=== PATIENT | female | born 1985 | race Hispanic/Latino ===

== ENCOUNTER 2016-11-13 12:40 | Outpatient (CLI) | payer BC ==
--- NOTE | 2016-11-13 15:34 | Ultrasound Report ---
ULTRASOUND PELVIC COMPLETE ULTRASOUND TRANSVAGINAL HISTORY: Pelvic pain. TECHNIQUE: Transabdominal and transvaginal ultrasound with color and spectral doppler interrogation. The uterus is enlarged measuring 14 x 8 x 12 cm. A large fibroid in the posterior wall measures up to 10 cm. The endometrial stripe is displaced anteriorly and measures 2.3 cm on transvaginal imaging. There is suggestion of a small cyst or gestational sac within the endometrium with average diameter measuring 12 mm. No definite pole or heart tones are demonstrated. If this is a gestational sac, it correlates with a 6 week, 0 day . The right ovary measures 3.9 x 2.1 x 2.8 cm. The right ovary contains a 2 cm complex area which may represent a corpus luteum cyst. The left ovary is unremarkable measuring 3.7 x 1.4 x 3.6 cm. Impression: Uterine fibroid disease. There is suggestion of a cyst or intrauterine gestational sac as outlined above. Is there clinical concern for ? Correlation with test or beta hCG levels is recommended.
== END 2016-11-13 12:41 | disposition home or self-care (01) ==
LOC: US 12:40
PROVIDERS: ATTEND Obstetrics & Gynecology
DX: D25.9 Leiomyoma of uterus, unspecified (principal); N85.2 Hypertrophy of uterus
CPT/HCPCS: 76830; 76856

== ENCOUNTER 2016-11-16 09:33 | Outpatient (CLI) | payer BC | END 2016-11-16 09:34 | disposition home or self-care (01) | LOC: LAB 09:33 | PROVIDERS: ATTEND Obstetrics & Gynecology | DX: Z03.79 Encounter for other suspected maternal and fetal conditions ruled out (principal) | CPT/HCPCS: 36415; 84702 ==

== ENCOUNTER 2016-11-18 10:01 | Day surgery (SDC) | payer BC ==
--- NOTE | 2016-11-18 10:27 | Anesthesia Consultation ---
Anesthesia Consult and Med Hx Date of service: 11/18/16 - Airway Anesthetic Teeth Evaluation: Good ROM Head & Neck: Adequate Mental/Hyoid Distance: Adequate Mallampati Class: Class II Intubation Access Assessment: Probably Good - Pulmonary Exam CTA: Yes - Cardiac Exam Cardiac Exam: RRR - Pre-Operative Health Status ASA Pre-Surgery Classification: ASA1 Proposed Anesthetic Plan: General (Uterine Fibroud) - Additional Comments Anesthesia Medical History Comments: Uterine Fibroid
--- NOTE | 2016-11-18 10:27 | Anesthesia Day of Surgery ---
Anesthesia Day of Surgery - Day of Surgery Patient Examined: Yes Patient H&P Reviewed: Yes Patient is NPO: Yes
--- NOTE | 2016-11-18 10:50 | Short Stay Summary ---
Short Stay Documentation Date of service: 11/18/16 Narrative H&P: Pt is a 31yo WF LMP 10/05/16 presents for surgical evaluation and treatment of a blighted ovum. Bhcg was 17,577 and pelvic u/s showed an enlarged uterus with a 10cm posterior fibroid and an empty gestational sac. She has severe pelvic pain but no bleeding. She is now scheduled for a D&C due to Blighted ovum. - History Principal diagnosis: Blighted ovum H&P: obtained from office Past Medical History: other (fibroids) Past Surgical History: No surgical history Social history: no significant social history, single - Allergies and Medications Current Medications: Allergies No Known Allergies Allergy (Verified 05/07/15 09:18) Home Medications Medication Instructions Recorded Confirmed Last Taken Type Acetaminophen/Codeine [Tylenol #3] 1 tab PO Q6H PRN #16 tab 05/07/15 Unknown Rx Cyclobenzaprine [Flexeril] 10 mg PO TID PRN #15 tablet 05/07/15 Unknown Rx Active Medications Cefazolin Sodium (Ancef/Sterile Water 2 Gm/20 Ml) 2 gm in 20 mls @ 80 mls/hr IV PREOP NR PRN Reason: Protocol Lactated Ringer's (Lactated Ringers) 1,000 mls @ 125 mls/hr IV DIRECT CHASE - Physical exam General appearance: mild distress Integumentary: no rash HEENT: Atraumatic Lungs: Clear to auscultation Breasts: deferred Heart: Regular rate Gastrointestinal: normal Female Genitourinary: masses Rectal Exam: deferred Extremities: No edema Neurological: Normal gait, Normal speech - Brief post op/procedure progress note Date of procedure: 11/18/16 Pre-op diagnosis: Blighted ovum Post-op diagnosis: same Procedure: D&C Anesthesia: MAC Findings: A 10-12 weeks size uterus with a large posterior masses. Moderate amount of POC obtained. Surgeon: SINGH IRELAND Estimated blood loss: 50-100ml Pathology: list (POC) Specimen disposition: to lab Condition: stable - Hospital course Hospital course: Unremarkable. - Disposition Condition at discharge: Good Disposition: DC-01 TO HOME OR SELFCARE - Discharge Diagnoses (1) Blighted ovum Status: Resolved (2) Fibroid uterus Status: Chronic Qualifiers: Uterine leiomyoma location: submucous Qualified Code(s): D25.0 - Submucous leiomyoma of uterus Short Stay Discharge Plan Activity: no restrictions Diet: regular Follow up with: PRIMARY CARE, [Primary Care Provider] - 7 Days SINGH IRELAND MD [Staff Physician] - 14 Days Prescriptions: Doxycycline [Vibramycin CAP] 100 mg PO Q12HR #14 capsule HYDROcodone/APAP 5-325 [Mon[place] 5/325] 1 each PO Q6HR PRN #20 tablet PRN Reason: Pain Ibuprofen [Motrin] 800 mg PO Q8HR PRN #30 tablet PRN Reason: Moder Pain Unrelieved By [place] Methylergonovine [Methergine] 0.2 mg PO Q8HR #6 tablet
[2016-11-18] MEDS ORDERED: ANCEF/STERILE WATER 2 GM/20 ML 2 GM/20 ML SYRINGE IV NR (11:00)
[2016-11-18] MEDS ORDERED: LACTATED RINGERS 1,000 ML IV SCH (11:00)
[2016-11-18] MEDS ORDERED: XYLOCAINE MPF 2% ONE (11:04)
[2016-11-18] MEDS ORDERED: SUBLIMAZE ONE (11:04)
[2016-11-18] MEDS ORDERED: DIPRIVAN 10 MG/ML IV ONE (11:04)
[2016-11-18] MEDS ORDERED: ZOFRAN ONE (11:06)
[2016-11-18] MEDS ORDERED: DECADRON ONE (11:06)
[2016-11-18] MEDS ORDERED: DILAUDID IV ONE (11:08)
[2016-11-18 11:17] LABS: Hematocrit 32.8 % (30.3-42.9); Hemoglobin 11.2 gm/dl (10.1-14.3); Mean Corpuscular HGB Conc 34 % (30-34); Mean Corpuscular Hemoglobin 30 pg (28-32); Mean Corpuscular Volume 89 fl (79-97); Platelet Count 368 K/mm3 (140-440); Red Cell Distribution Width 12.7 % (13.2-15.2); White Blood Count 13.5 K/mm3 (4.5-11.0)
[2016-11-18] MEDS ORDERED: VERSED IV NR (12:00)
[2016-11-18] MEDS ORDERED: ZOFRAN IV NR (12:00)
[2016-11-18] MEDS ORDERED: PEPCID IV NR (12:00)
[2016-11-18] MEDS ORDERED: NACL 0.9% IR ONE (12:10)
--- NOTE | 2016-11-18 12:30 | Operative Report ---
Operative Report Operative Report: PREOPERATIVE DIAGNOSIS: 1. Blighted ovum 2. Fibroid uterus POSTOPERATIVE DIAGNOSIS: Same OPERATIVE PROCEDURE: Dilatation and curettage. SURGEON: Pk Diaz MD ANESTHESIA: General Mac ANESTHESIOLOGIST: Dr. Fitzgerald ESTIMATED BLOOD LOSS: 50 mL's FINDINGS: A 10-12 week size uterus with moderate amounts products of conception. A large posterior fibroid. COMPLICATIONS: None COUNTS: Correct x3. PROCEDURE: After the patient was correctly identified, and after general anesthesia was administered, the patient was prepped and draped in the usual sterile fashion and placed in dorsal lithotomy position. First, the bladder was emptied using a straight catheter. Next, a speculum was placed in the vaginal vault and the anterior lip of the cervix was grasped using a single- tooth tenaculum. The uterus was sounded to 12 cm. The cervical os was sequentially dilated, and an 10 mm vaccurette was used to suction blood and products of conception from the uterine cavity. After all the products of conception were removed, the procedure was considered complete. All instruments were removed from the vagina. The patient tolerated the procedure well and was transferred to the recovery room in stable condition.
[2016-11-18] MEDS: DILAUDID IV PRN ×2 (12:50→13:00)
--- NOTE | 2016-11-18 12:57 | Post Anesthesia Evaluation ---
- Post Anesthesia Evaluation Patient Participated: Yes Airway Patent: Yes Stable Respiratory Function: Yes Nausea/Vomiting: No Temp > 96.8F: Yes Pain Manageable: Yes Adequeate Hydration: Yes Anesthesia Complications: No Block Receding Appropriately: Not Applicable Patient on Ventilator: No
[2016-11-18] MEDS ORDERED: TORADOL ONE (13:05)
[2016-11-18] MEDS ORDERED: TORADOL IV ONE (13:09)
[2016-11-18 14:05] VITALS: BP 98/56
== END 2016-11-18 14:10 | disposition home or self-care (01) ==
LOC: OR 10:01
PROVIDERS: ATTEND Obstetrics & Gynecology
DX: O02.0 Blighted ovum and nonhydatidiform mole (principal); D25.0 Submucous leiomyoma of uterus
CPT/HCPCS: 36415; 59812; 85027; 86900; 86901; 88305; J0690; J1100; J1170; J1885; J2250; J2405; J2704; J3010; J7120

== ENCOUNTER 2016-12-04 12:21 | Outpatient (CLI) | payer BC | END 2016-12-04 12:22 | disposition home or self-care (01) | LOC: LAB 12:21 | PROVIDERS: ATTEND Obstetrics & Gynecology | DX: Z32.01 Encounter for pregnancy test, result positive (principal) | CPT/HCPCS: 36415; 84702 ==

== ENCOUNTER 2016-12-07 11:49 | Outpatient (CLI) | payer BC | END 2016-12-07 11:50 | disposition home or self-care (01) | LOC: LAB 11:49 | PROVIDERS: ATTEND Obstetrics & Gynecology | DX: O02.0 Blighted ovum and nonhydatidiform mole (principal); Z3A.15 15 weeks gestation of pregnancy | CPT/HCPCS: 36415; 84702 ==

== ENCOUNTER 2017-01-20 13:02 | Outpatient (CLI) | payer BC | END 2017-01-20 13:03 | disposition home or self-care (01) | LOC: LAB 13:02 | PROVIDERS: ATTEND Obstetrics & Gynecology | DX: Z32.02 Encounter for pregnancy test, result negative (principal) | CPT/HCPCS: 36415; 84702 ==

== ENCOUNTER 2017-07-21 16:03 | Outpatient (CLI) | payer BC ==
--- NOTE | 2017-07-22 08:02 | Magnetic Resonance Report ---
MR PELVIS WITH AND WITHOUT CONTRAST HISTORY: Leiomyoma of uterus TECHNIQUE: Multiple T1 and T2-weighted images with and without fat suppression. Post contrast T1 fat-sat imaging following 15 mL of Multihance intravenously. COMPARISON: Pelvic ultrasound dated 11/13/16. FINDINGS: The uterus is anteverted. The uterus measures 9.5 x 6.7 x 9.1 cm. There is a large submucosal fibroid in the left posterolateral uterine wall measuring up to 6.2 x 6.9 x 5.8 cm. There is no significant enhancement of this fibroid following IV gadolinium. No calcifications. No additional fibroids are detected. The endometrial stripe is displaced and measures up to 1.2 cm in thickness. The cervix is unremarkable. The ovaries are within normal limits and contain normal appearing follicles. The bladder and visualized bowel loops within the pelvis are unremarkable. There is trace pelvic fluid in the cul-de-sac which appears physiologic. No evidence adenopathy or inflammatory changes. The bony pelvis is normal. IMPRESSION: Large submucosal fibroid as outlined above without significant enhancement following IV gadolinium.
== END 2017-07-21 16:04 | disposition home or self-care (01) ==
LOC: MRI 16:03
PROVIDERS: ATTEND Radiology Diagnostic Radiology
DX: D25.0 Submucous leiomyoma of uterus (principal)
CPT/HCPCS: 72197; A9577

== ENCOUNTER 2017-12-29 14:51 | Outpatient (CLI) | payer BC ==
--- NOTE | 2017-12-29 18:11 | Ultrasound Report ---
FINAL REPORT EXAM: US PELVIC COMPLETE HISTORY: HX FIBROID; F/U . LMP 12/21/2017 TECHNIQUE: Ultrasound of the pelvis using transvaginal imaging PRIORS: Doubt ultrasound pelvis 11/13/2016, MRI pelvis 07/21/2017 FINDINGS: Uterus: Uterus is normal in size and heterogeneous in echogenicity. The uterus measures 9.1 x 5.2 x 8.8 cm in size. Within the left side of the uterus, there is a 5.9 x 4.3 x 5.7 cm hypoechoic fibroid again noted, similar to the previous exam. This displaces the endometrial stripe to the right of midline. Endometrial stripe: Normal and uniform in thickness measuring 10.1 mm. Ovaries: Both ovaries appear normal in size and echogenicity with normal blood flow bilaterally. The right ovary measures 3.8 x 2.3 x 2.8 cm and the left ovary measures 2.9 x 2.1 x 3.4 cm in size. Other: There is no evidence for solid adnexal mass or free fluid in the cul-de-sac seen. There is a small amount of fluid in the right adnexa. IMPRESSION: Stable pelvic ultrasound. Large fibroid in the left side of the uterus again noted.
--- NOTE | 2017-12-30 00:49 | Ultrasound Report ---
FINAL REPORT EXAM: US TRANSVAGINAL HISTORY: f/u hx; fibroids COMPARISON: Pelvic ultrasound from October 2016. MRI the pelvis from July 2017. TECHNIQUE: Several real-time grayscale and color Doppler images were obtained. Transvaginal exam. FINDINGS: The uterus measures 9.1 x 5.2 x 8.8 centimeters. Endometrial stripe measures 10 millimeters. This is within normal limits. There redemonstration of a prominent fibroid along the left uterine body measuring 5.9 x 4.3 x 5.7 centimeters. On prior study, this measured 6.2 x 6.9 x 5.8 centimeters. This has a prominent subserosal component. Right ovary measures 3.8 x 2.3 x 2.8 centimeters. Left ovary measures 2.9 x 2.1 x 3.4 centimeters. Within the right ovary there is a dominant follicle measuring 1.7 centimeters. Gross vascular flow to the ovaries. No adnexal masses are demonstrated. Trace free fluid in the pelvis within physiologic limits. IMPRESSION: Re-demonstration of prominent fibroid along the lateral margin the uterus measuring up to 5.9 centimeters in greatest dimension on today's exam, previously 6.9 centimeters on prior MRI. No other uterine lesions. Dominant follicle right ovary measuring 1.7 centimeters. Ovaries are otherwise unremarkable. No adnexal masses.
== END 2017-12-29 14:52 | disposition home or self-care (01) ==
LOC: US 14:51
PROVIDERS: ATTEND Obstetrics & Gynecology
DX: D25.1 Intramural leiomyoma of uterus (principal)
CPT/HCPCS: 76830; 76856

== ENCOUNTER 2018-05-02 08:35 | Outpatient (CLI) | payer BC ==
--- NOTE | 2018-05-02 11:23 | Ultrasound Report ---
ULTRASOUND PELVIC COMPLETE ULTRASOUND TRANSVAGINAL HISTORY: Pelvic and perineal pain. COMPARISON: 12/29/17. TECHNIQUE: Transabdominal and transvaginal ultrasound with color doppler interrogation. FINDINGS: Uterus: The uterus is anteverted. The uterus measures 9.2 x 4.4 x 5.8 cm. The large fibroid within the left lateral uterine wall has been removed since the previous exam. A cystic area filled with simple appearing fluid is now present in this area measuring 2.6 x 1.7 x 1.7 cm. No additional uterine fibroids are identified on ultrasound. Endometrium: 11.4 mm. No focal abnormality. Right ovary: 4.0 x 2.4 x 3.0 cm. A 1.7 cm slightly irregular cyst is noted within the right ovary. No suspicious mass. Left ovary: 3.5 x 2.2 x 3.8 cm. No focal abnormality. No pelvic fluid or mass is identified. Normal color doppler interrogation. IMPRESSION: The previously described fibroid in the left lateral uterine wall has been resected since 12/29/17. See above. 1.7 cm right ovarian cyst. No acute process is appreciated.
== END 2018-05-02 08:36 | disposition home or self-care (01) ==
LOC: US 08:35
PROVIDERS: ATTEND Obstetrics & Gynecology
DX: D25.1 Intramural leiomyoma of uterus (principal); N83.201 Unspecified ovarian cyst, right side
CPT/HCPCS: 76830; 76856

== ENCOUNTER 2019-03-02 08:35 | Outpatient (CLI) | payer BC ==
[2019-03-02 08:54] LABS: Hematocrit 39.2 % (30.3-42.9); Hemoglobin 13.1 gm/dl (10.1-14.3); Mean Corpuscular HGB Conc 33 % (30-34); Mean Corpuscular Volume 89 fl (79-97); Platelet Count 266 K/mm3 (140-440); Red Blood Count 4.39 M/mm3 (3.65-5.03); Red Cell Distribution Width 13.4 % (13.2-15.2)
[2019-03-02 09:29] LABS: Alanine Aminotransferase 5 units/L (7-56); Albumin 4.6 g/dL (3.9-5); BUN/Creatinine Ratio 18; Blood Urea Nitrogen 11 mg/dL (7-17); Calcium 9.3 mg/dL (8.4-10.2); Chol/HDL Ratio 2.77 %; HDL Cholesterol 48 mg/dL (40-59); Hemolysis Index 3; LDL Cholesterol,Direct 86 mg/dL (50-130)
[2019-03-06 14:43] LABS: Vitamin D, 25-OH, D2 <4 ng/mL
== END 2019-03-02 08:36 | disposition home or self-care (01) ==
LOC: LAB 08:35
PROVIDERS: ATTEND Family Medicine
DX: Z00.00 Encounter for general adult medical examination without abnormal findings (principal)
CPT/HCPCS: 36415; 80053; 80061; 82306; 82607; 82747; 83036; 84443; 85027

== ENCOUNTER 2020-03-08 11:53 | Outpatient (CLI) | payer BC ==
--- NOTE | 2020-03-08 18:37 | Ultrasound Report ---
Ultrasound transvaginal and transabdominal pelvic ultrasound INDICATION: Menorrhagia. Pelvic pain. History of fibroids. FINDINGS: The uterus measures 9.3 x 4.4 x 6.7 cm. A small myometrial calcification measuring 5 mm is present within the uterus. Endotracheal thickness is normal at 7 mm. A small amount of free fluid is seen adjacent to the right adnexa. The right ovary appears normal. The left ovary appears unremarkabl e aside from multiple small follicles. In the region of the left adnexa but not definitely within the left adnexa is a soft tissue like echogenicity that measures 3.4 x 1.5 cm. This demonstrates some in ternal flow. IMPRESSION: Nonspecific 3.4 x 1.5 cm lesion adjacent to the left adnexa, as above. As discussed above it is unclear if this is arising from the left adnexa or possibly the uterus. Alternatively this les ion is in the vicinity of the left external iliac vasculature and could potentially represent a patho logic lymph node. Recommend CT of the pelvis with IV contrast for further evaluation. Signer Name: Adarsh Austin MD Signed: 03/08/2020 6:32 PM Workstation Name: [id number]
== END 2020-03-08 11:54 | disposition home or self-care (01) ==
LOC: US 11:53
PROVIDERS: ATTEND Internal Medicine
DX: N85.9 Noninflammatory disorder of uterus, unspecified (principal); N85.8 Other specified noninflammatory disorders of uterus; R10.9 Unspecified abdominal pain
CPT/HCPCS: 76830; 76856

== ENCOUNTER 2020-03-19 10:03 | Outpatient (CLI) | payer BC ==
[2020-03-19 10:50] LABS: Blood Urea Nitrogen 9 mg/dL (7-17)
--- NOTE | 2020-03-19 12:09 | Cat Scan Report ---
CT pelvis w con INDICATION: Pelvic mass COMPARISON: Ultrasound 03/08/2020 TECHNIQUE: Pelvic CT exam performed. All CT scans at this location are performed using CT dose reduct ion for ALARA by means of automated exposure control. FINDINGS: CT PELVIS: Genitourinary: Periuterine varices are present. There is a peripherally enhancing cyst in the left ov karthik measuring 2 cm likely a corpus luteal cyst. Small quantity of fluid is seen within the rectouteri ne out. Lymphatics: There is a 2.7 cm soft tissue mass seen along the left aspect of the uterus. This is thou ght to represent a large lymph node. Mild lymphadenopathy is seen in the retroperitoneum in the peria ortic and aortocaval space for example on image 1 and 2 of series 2 measuring approximately 1.1 cm. T here are shotty lymph nodes seen along the pelvic sidewalls. Vasculature: No significant abnormality. Visualized Bowel: No significant abnormality. Osseous Structures: No aggressive osseous lesion. Additional Findings: None IMPRESSION: 1. There is a 2.7 cm soft tissue mass seen medially to the left external iliac artery and vein. This is most consistent with an enlarged lymph node. There is also mild retroperitoneal lymphadenopathy wh ich is incompletely visualized. Findings are concerning for neoplasm such as lymphoma. Recommend obta ining a CT of the chest and abdomen. Then recommend biopsy of the most accessible lesion. Signer Name: Silas Novak MD Signed: 03/19/2020 12:04 PM Workstation Name: [id number]
== END 2020-03-19 10:04 | disposition home or self-care (01) ==
LOC: CT 10:03
PROVIDERS: ATTEND Internal Medicine
DX: R59.0 Localized enlarged lymph nodes (principal); N83.202 Unspecified ovarian cyst, left side; R19.09 Other intra-abdominal and pelvic swelling, mass and lump
CPT/HCPCS: 36415; 72193; 82565; 84520; Q9967

== ENCOUNTER 2020-03-20 14:35 | Outpatient (CLI) | payer BC ==
--- NOTE | 2020-03-20 16:57 | Cat Scan Report ---
CT chest w con, CT abdomen w con INDICATION / CLINICAL INFORMATION: GENERALIZED INTRA-ABDOMINAL AND PELVIC SWEELING,MASS/LUMP. TECHNIQUE: Axial CT images were obtained through the chest, abdomen. All CT scans at this location are performed using CT dose reduction for ALARA by means of automated exposure control. COMPARISON: CT pelvis from 03/19/2020. FINDINGS: CHEST: Lungs: Lungs are clear No pleural effusion. No pneumothorax. Heart: No significant abnormality. Mediastinum: No significant abnormality. ADDITIONAL FINDINGS: None. ABDOMEN: Liver: No significant abnormality. Biliary: No significant abnormality. Spleen: No significant abnormality. Pancreas: No significant abnormality. Adrenals: No significant abnormality. Kidneys: No significant abnormality. Lymphatics: Mild retroperitoneal periaortic lymphadenopathy for example on images 70 and 80 in which the lymph nodes measure up to approximately 1.2 cm but demonstrate abnormal round morphology Vasculature: No significant abnormality. Bowel/Peritoneum: No significant abnormality. Osseous Structures: No aggressive osseous lesion. Additional Findings: None PELVIS 2.7 cm soft tissue mass seen along the left aspect of the uterus with central hypoattenuation. This i s thought to represent a large lymph node with central necrosis. On the prior examination there is no central hypoattenuation which could be related to the phase of contrast. Unchanged peripherally enha ncing left ovarian lesion which is most consistent with a corpus luteal cyst. IMPRESSION: 1. 2.7 cm soft tissue mass seen along the left external iliac chain is thought to represent an abnorm al lymph node. On today's examination there is central hyperattenuation concerning for central necros is. There is also mild retroperitoneal periaortic lymphadenopathy. No primary neoplasm is visualized however these findings are concerning for neoplastic etiology. 2. Signer Name: Silas Novak MD Signed: 03/20/2020 4:52 PM Workstation Name: [id number]
== END 2020-03-20 14:36 | disposition home or self-care (01) ==
LOC: CT 14:35
PROVIDERS: ATTEND Internal Medicine
DX: R59.0 Localized enlarged lymph nodes (principal)
CPT/HCPCS: 71260; 74160; Q9967

== ENCOUNTER 2020-04-03 08:09 | Day surgery (SDC) | payer BC ==
[2020-04-03] MEDS ORDERED: ONDANSETRON 4 MG/2 ML INJ IV ONE (08:39)
[2020-04-03] MEDS ORDERED: HYDROmorphone 2 MG/1 ML INJ IV ONE (08:39)
[2020-04-03] MEDS ORDERED: HYDROmorphone 1 MG/1 ML INJ IV ONE (09:24)
[2020-04-03 09:41] LABS: Basophils % (Auto) 0.9 % (0.0-1.8); Eosinophils # (Auto) 0.2 K/mm3 (0.0-0.4); Eosinophils % (Auto) 3.5 % (0.0-4.3); Hematocrit 38.1 % (30.3-42.9); Hemoglobin 13.2 gm/dl (10.1-14.3); Lymphocytes # (Auto) 1.8 K/mm3 (1.2-5.4); Lymphocytes % (Auto) 40.5 % (13.4-35.0); Mean Corpuscular HGB Conc 35 % (30-34); Mean Corpuscular Volume 90 fl (79-97); Monocytes # (Auto) 0.3 K/mm3 (0.0-0.8); Monocytes % (Auto) 7.4 % (0.0-7.3); Platelet Count 253 K/mm3 (140-440); Red Blood Count 4.25 M/mm3 (3.65-5.03); Red Cell Distribution Width 12.8 % (13.2-15.2)
[2020-04-03] MEDS ORDERED: SODIUM CHLORIDE 0.9% 500 ML 500 ML IV SCH (10:00)
[2020-04-03 10:04] LABS: INR 1.06 (0.87-1.13)
[2020-04-03 10:05] LABS: Partial Thromboplastin Time 30.9 Sec. (24.2-36.6)
[2020-04-03 10:20] VITALS: BP 105/56
--- NOTE | 2020-04-03 12:15 | Cat Scan Report ---
CT ABDOMEN AND PELVIS WITHOUT CONTRAST HISTORY: enlarged lymph node. COMPARISON: 03/20/2020 CT chest and abdomen. 03/19/2020 CT pelvis. TECHNIQUE: Helical CT images of the abdomen and pelvis were obtained without administration of intrav enous contrast. Sagittal and coronal reformatted images were reviewed. All CT scans at this location are performed using CT dose reduction for ALARA by means of automated exposure control. FINDINGS: This examination was scheduled as a CT-guided left external iliac lymph node biopsy. Initial scan of the pelvis for localization of the lymph node demonstrated no adequate radiographic window for percut aneous CT-guided biopsy. This lymph node appeared to be accessible on the previous CT but it was inac cessible on today's exam for safe CT-guided biopsy. The lymph node is surrounded by the bladder, left fallopian tubule and left external iliac vessels. For this reason CT-guided biopsy was canceled. The se findings were discussed at length with the patient and previous examinations were reviewed with e patient. However, the lymph node has decreased in size since 03/20/2020 exam from 3.5 x 1.8 cm to 2.7 x 1.6 cm. This suggests a reactive or inflammatory lymph node. No new adenopathy is identified. The uterus, adnexa, bladder and visualized bowel loops in the pelvis are within normal limits. Myomec sydnie changes along the left lateral uterine wall are noted. IMPRESSION: Unsuccessful CT-guided biopsy of the left external iliac lymph node due to lack of a sufficient radio graphic window for needle placement. The left pelvic lymph node has decreased in size since 03/20/2020 examination as outlined above. These findings were discussed with Dr. Medina. Consider follow-up CT in 3-6 months to ensure stability or continued decrease in size. If clinical concern persists, PET /CT may prove useful in this patient for further evaluation. Signer Name: Pk Hoyt Jr, MD Signed: 04/03/2020 12:11 PM Workstation Name: [id number]
== END 2020-04-03 11:35 | disposition home or self-care (01) ==
LOC: CATHLABREC 08:09 → EDSTATUS 08:30 → CATHLABREC 11:35
PROVIDERS: ATTEND Internal Medicine
DX: R19.07 Generalized intra-abdominal and pelvic swelling, mass and lump (principal); R59.9 Enlarged lymph nodes, unspecified; Z53.8 Procedure and treatment not carried out for other reasons; Z79.899 Other long term (current) drug therapy; D25.9 Leiomyoma of uterus, unspecified; Z98.890 Other specified postprocedural states
CPT/HCPCS: 36415; 74176; 85025; 85610; 85730; J1170; J2405; J7040

== ENCOUNTER 2020-07-01 08:55 | Outpatient (CLI) | payer BC ==
[2020-07-01 09:28] LABS: Hematocrit 37.1 % (30.3-42.9); Hemoglobin 12.7 gm/dl (10.1-14.3); Mean Corpuscular HGB Conc 34 % (30-34); Mean Corpuscular Volume 89 fl (79-97); Platelet Count 275 K/mm3 (140-440); Red Blood Count 4.18 M/mm3 (3.65-5.03); Red Cell Distribution Width 13.3 % (13.2-15.2)
[2020-07-01 09:45] LABS: Blood Urea Nitrogen 11 mg/dL (7-17); Calcium 9.1 mg/dL (8.4-10.2); Hemolysis Index 2
[2020-07-01 09:49] LABS: BUN/Creatinine Ratio 16
[2020-07-01 10:05] LABS: INR 1.01 (0.87-1.13); Partial Thromboplastin Time 27.9 Sec. (24.2-36.6)
== END 2020-07-01 08:56 | disposition home or self-care (01) ==
LOC: LAB 08:55
PROVIDERS: ATTEND Plastic Surgery
DX: Z41.1 Encounter for cosmetic surgery (principal)
CPT/HCPCS: 36415; 80048; 85027; 85610; 85730

== ENCOUNTER 2020-08-27 08:30 | Outpatient (CLI) | payer BC ==
--- NOTE | 2020-08-27 09:30 | Ultrasound Report ---
OB Ultrasound HISTORY: AMENORRHEA/ICD-626.O/TVX41-X66.1. TECHNIQUE: Grayscale and color imaging performed. COMPARISON: CT abdomen/pelvis from 04/03/2020 FINDINGS: Transabdominal and endovaginal imaging was performed. Uterus measures 10.1 x 5.4 x 5.3 cm. Since there is a tiny cystic structure in the region of the uter ine fundus with mean diameter of 8 mm which would correspond with an EGA of 5 weeks and 4 days. No fe luciano pole or yolk sac identified. There is a small hypoechoic mass along the posterior aspect of the uterine body measuring up to 3.8 c m in maximal dimension most likely representing a fibroid. Right ovary measures 3.3 x 2.0 x 1.9 cm and the left measures 5.0 x 2.6 x 2.6 cm. There are follicles on the right with a small cyst measuring 1.2 cm which is relatively simple in appearance and most li mikel functional. There is preserved ovarian blood flow. Trace pelvic free fluid is present. IMPRESSION: 1. Tiny intrauterine cystic structure as above may represent an early gestational sac. Correlate with beta hCG level and if needed future pelvic ultrasound follow-up. 2. Probable uterine fibroid. 3. Tiny simple right ovarian cyst, likely functional. Signer Name: Obdulio Quevedo MD Signed: 08/27/2020 9:25 AM Workstation Name: [id number]
== END 2020-08-27 08:31 | disposition home or self-care (01) ==
LOC: US 08:30
PROVIDERS: ATTEND Obstetrics & Gynecology
DX: N83.291 Other ovarian cyst, right side (principal); N25.9 Disorder resulting from impaired renal tubular function, unspecified; N85.8 Other specified noninflammatory disorders of uterus; N91.1 Secondary amenorrhea
CPT/HCPCS: 76801; 76817

== ENCOUNTER 2020-08-28 10:28 | Outpatient (CLI) | payer BC | END 2020-08-28 10:29 | disposition home or self-care (01) | LOC: LAB 10:28 | PROVIDERS: ATTEND Obstetrics & Gynecology | DX: N92.5 Other specified irregular menstruation (principal) | CPT/HCPCS: 36415; 84702 ==

== ENCOUNTER 2020-09-13 09:42 | Outpatient (CLI) | payer BC ==
--- NOTE | 2020-09-13 11:36 | Ultrasound Report ---
US OB transvaginal, US OB <= 14 weeks fetus INDICATION / CLINICAL INFORMATION: AMENORRHEA,SECONDARY. TECHNIQUE: Transabdominal and Transvaginal. COMPARISON: Ultrasound 08/27/2020. CT the summer FINDINGS: UTERUS: Appears within normal limits. GESTATIONAL SAC: Well-defined oval shape and intrauterine in location. EMBRYO/FETUS: - Momeyer-Rump Length = 0.8 cm - Heart Rate, beats per minute (if present) = 150 beats per minute ADNEXA: Indeterminate lesion in the left adnexa measuring up to 6.1 cm FREE FLUID: None. ADDITIONAL FINDINGS: IMPRESSION: 1. Single, living intrauterine with estimated sonographic age of 7 weeks 4 days. 2. Large left adnexal lesion measuring up to 6.1 cm. This appears larger than prior CT from 03/20/2020 . Correlate with prior pathology from biopsy. Signer Name: Silas Novak MD Signed: 09/13/2020 11:32 AM Workstation Name: [id number]
--- NOTE | 2020-09-13 11:36 | Ultrasound Report ---
US OB transvaginal, US OB <= 14 weeks fetus INDICATION / CLINICAL INFORMATION: AMENORRHEA,SECONDARY. TECHNIQUE: Transabdominal and Transvaginal. COMPARISON: Ultrasound 08/27/2020. CT the summer FINDINGS: UTERUS: Appears within normal limits. GESTATIONAL SAC: Well-defined oval shape and intrauterine in location. EMBRYO/FETUS: - Terry-Rump Length = 0.8 cm - Heart Rate, beats per minute (if present) = 150 beats per minute ADNEXA: Indeterminate lesion in the left adnexa measuring up to 6.1 cm FREE FLUID: None. ADDITIONAL FINDINGS: IMPRESSION: 1. Single, living intrauterine with estimated sonographic age of 7 weeks 4 days. 2. Large left adnexal lesion measuring up to 6.1 cm. This appears larger than prior CT from 03/20/2020 . Correlate with prior pathology from biopsy. Signer Name: Silas Novak MD Signed: 09/13/2020 11:32 AM Workstation Name: [id number]
== END 2020-09-13 09:43 | disposition home or self-care (01) ==
LOC: US 09:42
PROVIDERS: ATTEND Obstetrics & Gynecology
DX: Z34.91 Encounter for supervision of normal pregnancy, unspecified, first trimester (principal); Z3A.01 Less than 8 weeks gestation of pregnancy
CPT/HCPCS: 76801; 76817

== ENCOUNTER 2020-09-24 14:35 | Outpatient (CLI) | payer BC ==
[2020-09-24 15:44] LABS: Basophils # (Auto) 0.1 K/mm3 (0.0-0.1); Basophils % (Auto) 0.9 % (0.0-1.8); Eosinophils # (Auto) 0.1 K/mm3 (0.0-0.4); Eosinophils % (Auto) 1.7 % (0.0-4.3); Hematocrit 36.3 % (30.3-42.9); Hemoglobin 12.2 gm/dl (10.1-14.3); Lymphocytes # (Auto) 2.2 K/mm3 (1.2-5.4); Lymphocytes % (Auto) 28.3 % (13.4-35.0); Mean Corpuscular HGB Conc 34 % (30-34); Mean Corpuscular Volume 88 fl (79-97); Monocytes # (Auto) 0.6 K/mm3 (0.0-0.8); Platelet Count 267 K/mm3 (140-440); Red Blood Count 4.11 M/mm3 (3.65-5.03); Red Cell Distribution Width 13.3 % (13.2-15.2)
[2020-09-24 16:06] LABS: Alanine Aminotransferase 14 units/L (7-56); Albumin 4.4 g/dL (3.9-5); Blood Urea Nitrogen 10 mg/dL (7-17); Calcium 9.4 mg/dL (8.4-10.2); Hemolysis Index 12
[2020-09-24 16:09] LABS: BUN/Creatinine Ratio 25
[2020-09-24 16:22] LABS: Hepatitis C Virus Antibody Non-Reactive (NonReactive)
[2020-10-01 13:59] LABS: HIV-1 Antibody Differentiation SEE SCANNED RESULT; HIV-2 Antibody Differentiation SEE SCANNED RESULT
== END 2020-09-24 14:36 | disposition home or self-care (01) ==
LOC: LAB 14:35
PROVIDERS: ATTEND Obstetrics & Gynecology
DX: O09.891 Supervision of other high risk pregnancies, first trimester (principal); Z3A.08 8 weeks gestation of pregnancy
CPT/HCPCS: 36415; 80053; 85025; 85660; 86592; 86689; 86706; 86803; 86900; 86901

== ENCOUNTER 2020-11-08 07:14 | Outpatient (CLI) | payer BC | END 2020-11-08 07:15 | disposition home or self-care (01) | LOC: ECHO 07:14 | PROVIDERS: ATTEND Internal Medicine | DX: R06.02 Shortness of breath (principal); R00.2 Palpitations | CPT/HCPCS: 93306 ==

== ENCOUNTER 2020-11-25 13:01 | Outpatient (CLI) | payer BC | END 2020-11-25 13:02 | disposition home or self-care (01) | LOC: LAB 13:01 | PROVIDERS: ATTEND Obstetrics & Gynecology | DX: O09.891 Supervision of other high risk pregnancies, first trimester (principal); Z3A.00 Weeks of gestation of pregnancy not specified | CPT/HCPCS: 36415; 82106 ==

== ENCOUNTER 2021-01-02 17:14 | Outpatient (CLI) | payer BC ==
[2021-01-02 18:10] VITALS: BP 92/56
--- NOTE | 2021-01-02 18:48 | Ultrasound Report ---
ULTRASOUND OBSTETRIC LIMITED INDICATION / CLINICAL INFORMATION: wellbeing. Clinical Gestational Age (GA): 23.0 weeks.days COMPARISON: OB ultrasound 09/13/2020 FINDINGS: HEART RATE (beats per minute): 141 AMNIOTIC FLUID INDEX (cm) = not assessed but visually normal (normal = 7-24 cm) PRESENTATION: Breech. ADDITIONAL FINDINGS: None. IMPRESSION: 1. No significant abnormality. Signer Name: Rajendra Franks MD Signed: 01/02/2021 6:44 PM Workstation Name: [email or web address]
[2021-01-02] MEDS ORDERED: LACTATED RINGERS 1,000 ML IV ONE (19:12)
== END 2021-01-02 19:20 | disposition home or self-care (01) ==
LOC: TRG 17:14 → LD 17:17 → TRG 19:20
PROVIDERS: ATTEND Obstetrics & Gynecology
DX: Z34.92 Encounter for supervision of normal pregnancy, unspecified, second trimester (principal); Z3A.24 24 weeks gestation of pregnancy
CPT/HCPCS: 59025; 76815

== ENCOUNTER 2021-01-10 09:07 | Outpatient (CLI) | payer BC ==
[2021-01-10 09:33] LABS: Hematocrit 33.8 % (30.3-42.9); Hemoglobin 11.6 gm/dl (10.1-14.3)
== END 2021-01-10 09:08 | disposition home or self-care (01) ==
LOC: LAB 09:07
PROVIDERS: ATTEND Obstetrics & Gynecology
DX: O09.892 Supervision of other high risk pregnancies, second trimester (principal); Z3A.20 20 weeks gestation of pregnancy
CPT/HCPCS: 36415; 82951; 85014; 85018

== ENCOUNTER 2021-01-27 16:38 | Outpatient (CLI) | payer BC ==
[2021-01-27 17:10] VITALS: BP 100/59
[2021-01-27] MEDS ORDERED: LACTATED RINGERS 1,000 ML IV ONE (17:46)
[2021-01-27 18:14] LABS: Bacteria,Urine 1+ /HPF (Negative); Bilirubin,Urine NEG (Negative); Blood,Urine SM (Negative); Color,Urine Straw (Yellow); Mucus,Urine FEW /HPF; Protein,Urine <15 mg/dL mg/dL (Negative); Urobilinogen,Urine < 2.0 mg/dL (<2.0)
--- NOTE | 2021-01-27 18:54 | Event Note ---
Date: 01/27/21 Pt was seen and evaluated. She does c/o pelvic pressure and rectal pressure as well as discomfort due to fibroid uterus. Cx on exam felt to be ft dialted externally long and no presenting part noted. No sono, there is no evidence of dilation and CL noted to be >6cm, no funneling noted. Pt states she does feel better with getting IVFs and resting. Pt advised to continue resting, to wear her maternity belt(its ordered and on the way) as well as to continue to hydrate during the day. She expressed understanding and all questions were addressed and answered. Pt also noted to have spontaneous variable due to age most likely. BRANDI is normal on sono today.
--- NOTE | 2021-01-27 19:01 | Ultrasound Report ---
LIMITED OBSTETRICAL ULTRASOUND HISTORY: . Fever x12 hours. COMPARISON: 01/02/2021. FINDINGS: A single viable intrauterine in the maternal left transverse position has h eart tones of 153 bpm. The cervix measures 6.5 cm and is closed. Amniotic fluid index is normal measuring 14.6 cm. IMPRESSION: 1. Single viable intrauterine with cervix closed. 2. No detrimental change from the prior exam. Signer Name: Victor Hugo Walter MD Signed: 01/27/2021 6:57 PM Workstation Name: [id number]
== END 2021-01-27 19:45 | disposition home or self-care (01) ==
LOC: TRG 16:38 → APU 16:40 → TRG 19:45
PROVIDERS: ATTEND Obstetrics & Gynecology
DX: O26.892 Other specified pregnancy related conditions, second trimester (principal); R10.2 Pelvic and perineal pain; R10.9 Unspecified abdominal pain; Z3A.26 26 weeks gestation of pregnancy
CPT/HCPCS: 59025; 76815; 81001; 96360; J7120

== ENCOUNTER 2021-03-28 15:41 | Outpatient (CLI) | payer BC ==
[2021-03-28] MEDS ORDERED: LACTATED RINGERS 500 ML IV ONE (16:08)
[2021-03-28 16:53] LABS: Bilirubin,Urine NEG (Negative); Blood,Urine NEG (Negative); Color,Urine Straw (Yellow); Protein,Urine <15 mg/dL mg/dL (Negative); Urobilinogen,Urine < 2.0 mg/dL (<2.0)
--- NOTE | 2021-03-28 17:09 | XRay Report ---
CHEST 1 VIEW 03/28/2021 4:50 PM INDICATION / CLINICAL INFORMATION: SOB and Dizziness. COMPARISON: None available. FINDINGS: SUPPORT DEVICES: None. HEART / MEDIASTINUM: No significant abnormality. LUNGS / PLEURA: No significant pulmonary or pleural abnormality. No pneumothorax. ADDITIONAL FINDINGS: No significant additional findings. IMPRESSION: 1. No acute findings. Signer Name: John Murillo DO Signed: 03/28/2021 5:04 PM Workstation Name: [id number]
[2021-03-28 17:32] LABS: Basophils % (Auto) 0.3 % (0.0-1.8); Eosinophils # (Auto) 0.1 K/mm3 (0.0-0.4); Eosinophils % (Auto) 1.2 % (0.0-4.3); Hematocrit 36.1 % (30.3-42.9); Lymphocytes # (Auto) 1.4 K/mm3 (1.2-5.4); Lymphocytes % (Auto) 17.3 % (13.4-35.0); Mean Corpuscular HGB Conc 33 % (30-34); Mean Corpuscular Volume 93 fl (79-97); Monocytes # (Auto) 0.7 K/mm3 (0.0-0.8); Monocytes % (Auto) 8.9 % (0.0-7.3); Platelet Count 221 K/mm3 (140-440); Red Blood Count 3.87 M/mm3 (3.65-5.03); Red Cell Distribution Width 13.4 % (13.2-15.2)
[2021-03-28 17:55] LABS: Alanine Aminotransferase 11 units/L (7-56); Albumin 3.5 g/dL (3.9-5); Blood Urea Nitrogen 4 mg/dL (7-17); Calcium 8.6 mg/dL (8.4-10.2); Hemolysis Index 4
[2021-03-28 17:56] LABS: BUN/Creatinine Ratio 13
[2021-03-28] MEDS ORDERED: DOCUSATE SODIUM 100 MG CAP PO PRN (19:02)
[2021-03-28] MEDS ORDERED: ACETAMINOPHEN 325 MG TAB PO PRN (19:02)
--- NOTE | 2021-03-28 19:12 | History and Physical Report ---
History of Present Illness Date of examination: 03/28/21 Chief complaint: pt sent from office w/ c/o SOB and dizziness History of present illness: EDC Calculations by LMP: 05/01/2021 Past History : 3 Term Births: 1 Premature Births: 0 Living Children: 1 Para: 1 Mult. Births: 0 Prev : 0 Prev. attempt? 0 Aborta: 1 Elect. Ab: 0 Spont. 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 Infection History Hx of STD: none HIV Risk Eval: no Hepatitis B Risk Eval: low risk Personal hx. of genital herpes: no Partner hx. of genital herpes: no Rash, Viral, or Febrile illness since last LMP? no Varicella/Chicken Pox Status: Previous Disease TB Risk: no Genetic History Congenital Heart Defect: Mom: no Dad: no Thanh Disease: Mom: no Dad: no Thalassemia Mom: no Dad: no Neural Tube Defect Mom: no Dad: no Down's Syndrome Mom: no Dad: no Carl-Sachs Mom: no Dad: no Sickle Cell Disease/Trait Mom: no Dad: no Hemophilia Mom: no Dad: no Muscular Dystrophy Mom: no Dad: no Cystic Fibrosis Mom: no Dad: no Hammond Chorea Mom: no Dad: no Mental Retardation Mom: no Dad: no Fragile X Mom: no Dad: no Other Genetic/Chromosomal Disorder Mom: no Dad: no Child w/other defect Mom: no Dad: no Enviromental Exposures Xray Exposure: yes Medication, drug, or alcohol use since LMP: no Chemical/Other Exposure: yes Exposure to Cat Liter: no Hx of Parvovirus (Fifth Disease): no 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 @ [employer] 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 Medications (reviewed today): PNV () Current Allergies: * VACCINE REACTIONS: FLU AND GARDISIL (Critical) Past History Past Medical History: other (see HPI) Past Surgical History: other (see HPI) 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 (see HPI) Family/Genetic History: other (see HPI) - Obstetrical History Expected Date of Delivery: 05/01/21 Actual Gestation: 35 Week(s) 1 Day(s) : 3 Para: 1 Hx # Term Pregnancies: 1 Number of Pregnancies: 0 Spontaneous Abortions: 1 Induced : 0 Number of Living Children: 1 Medications and Allergies Allergies Allergy/AdvReac Type Severity Reaction Status Date / Time No Known Allergies Allergy Verified 10/27/19 12:53 Review of Systems All systems: negative Cardiovascular: shortness of breath Neurological: vertigo - Vital Signs Vital signs: Vital Signs Pulse BP 68 105/65 03/28/21 16:26 03/28/21 16:26 Temp Pulse Resp BP Pulse Ox 98.2 F 62 20 115/64 100 03/28/21 16:29 03/28/21 19:03 03/28/21 16:29 03/28/21 19:00 03/28/21 19:03 - Physical Exam Breasts: Positive: normal Cardiovascular: Regular rate Lungs: Positive: Normal air movement Abdomen: Positive: normal appearance, soft Genitourinary (Female): Positive: normal external genitalia, normal perenium Vulva: both: normal Vagina: Positive: normal moisture Uterus: Positive: normal size Extremities: Positive: normal Deep Tendon Reflex Grade: Normal +2 - Obstetrical FHR: category 1 Uterine Contraction Monitor Mode: External Uterine Contraction Pattern: Absent Uterine Tone Measurement Phase: Resting Results Result Diagrams: 03/28/21 17:15 03/28/21 17:15 Abnormal lab results 03/28/21 03/28/21 03/28/21 Range/Units 16:15 17:15 17:15 [place] % (Auto) 8.9 H (0.0-7.3) % Seg Neutrophils % 72.3 H (40.0-70.0) % Carbon Dioxide 21 L (22-30) mmol/L BUN 4 L (7-17) mg/dL Creatinine 0.3 L (0.6-1.2) mg/dL Glucose 101 H (65-100) mg/dL Total Protein 5.9 L (6.3-8.2) g/dL Albumin 3.5 L (3.9-5) g/dL Ur Specific [place] 1.002 L (1.003-1.030) Urine WBC (Auto) 29.0 H (0.0-6.0) /HPF All other labs normal. Chest x-ray: report reviewed (normal) Assessment and Plan 36 y/o @ 35+1, pt seen in office today for routine visit where she c/o SOB and feeling dizzy since last night. Pt denies sinus issues or cold symptoms, inner ear issues or CALLE. VSSAF. chest xray NL. EKG abnormal. Plan to admit patient for cardiology consult. Dr. Pryor consulted. - Patient Problems (1) Abnormal EKG Current Visit: Yes Status: Acute Plan to address problem: Cardiology consult (2) 35 weeks gestation of Current Visit: Yes Status: Acute (3) Dizziness Current Visit: Yes Status: Acute (4) Shortness of breath Current Visit: Yes Status: Acute (5) Female pelvic congestion syndrome Current Visit: Yes Status: Acute Plan to address problem: Continue lovenox q day
[2021-03-28] MEDS ORDERED: ENOXAPARIN 40 MG/0.4 ML INJ SUB-Q SCH (22:00)
[2021-03-29] MEDS ORDERED: PRENATAL VIT27-FE FUMARATE-FOLIC ACID VIT TAB PO SCH (10:00)
[2021-03-29] MEDS ORDERED: ENOXAPARIN 40 MG/0.4 ML INJ SUB-Q SCH (10:00)
--- NOTE | 2021-03-29 12:11 | Progress Note ---
Assessment and Plan Pt denies new complaints this am. Pt medical history and POC reviewed. Questions encouraged and answered. Pt verbalizes understanding and agrees to POC. Pt to receive cardiology consult today. All questions and concerns addressed. - Patient Problems (1) 35 weeks gestation of Current Visit: Yes Status: Acute (2) Abnormal EKG Current Visit: Yes Status: Acute Plan to address problem: awaiting cardiology consult (3) Dizziness Current Visit: Yes Status: Acute (4) Female pelvic congestion syndrome Current Visit: Yes Status: Acute Subjective - Subjective Date of service: 03/29/21 Principal diagnosis: IUP @ 35+2 weeks, abnormal EKG, c/o dizziness at night Patient reports: movement normal, no new complaints, no loss of fluid, no vaginal bleeding, no contractions Objective - Vital Signs Vital Signs: Vital Signs - 12hr 03/29/21 03/29/21 03/29/21 00:15 03:37 03:38 Temperature 98.1 F Pulse Rate 68 118 H Respiratory Rate Blood Pressure Blood Pressure [Left] O2 Sat by Pulse 99 85 Oximetry O2 Sat by Pulse Oximetry [ Bilateral Throughout] O2 Sat by Pulse Oximetry [ Bilateral] 03/29/21 03/29/21 03/29/21 03:44 03:49 03:54 Temperature Pulse Rate 62 60 58 L Respiratory Rate Blood Pressure 98/53 Blood Pressure [Left] O2 Sat by Pulse 98 98 98 Oximetry O2 Sat by Pulse Oximetry [ Bilateral Throughout] O2 Sat by Pulse Oximetry [ Bilateral] 03/29/21 03/29/21 03/29/21 03:59 04:04 08:08 Temperature Pulse Rate 61 62 93 H Respiratory Rate Blood Pressure Blood Pressure [Left] O2 Sat by Pulse 96 96 94 Oximetry O2 Sat by Pulse Oximetry [ Bilateral Throughout] O2 Sat by Pulse Oximetry [ Bilateral] 03/29/21 03/29/21 03/29/21 08:12 08:13 08:14 Temperature 98.0 F Pulse Rate 53 L 61 61 Respiratory 16 Rate Blood Pressure 104/61 Blood Pressure 104/61 [Left] O2 Sat by Pulse 99 100 Oximetry O2 Sat by Pulse Oximetry [ Bilateral Throughout] O2 Sat by Pulse Oximetry [ Bilateral] 03/29/21 08:15 Temperature Pulse Rate Respiratory Rate Blood Pressure Blood Pressure [Left] O2 Sat by Pulse Oximetry O2 Sat by Pulse 99 Oximetry [ Bilateral Throughout] O2 Sat by Pulse 99 Oximetry [ Bilateral] - Exam Breasts: normal Cardiovascular: Regular rate, Normal S1, Normal S2, No murmurs Lungs: Clear to auscultation, Normal air movement Abdomen: Present: normal appearance, soft. Absent: tenderness, guarding Uterus: Present: normal, other (gravid) FHR: auscultation normal, category 1 FHR comments: NST reactive per Primary RN report Uterine Contraction Monitor Mode: Palpation Uterine Contraction Pattern: Absent Uterine Tone Measurement Phase: Resting Extremities: normal - Labs Labs: Abnormal Labs 03/28/21 03/28/21 03/28/21 16:15 17:15 17:15 [place] % (Auto) 8.9 H Seg Neutrophils % 72.3 H Carbon Dioxide 21 L BUN 4 L Creatinine 0.3 L Glucose 101 H Total Protein 5.9 L Albumin 3.5 L Ur Specific [place] 1.002 L Urine WBC (Auto) 29.0 H Laboratory Results - last 24 hr 03/28/21 03/28/21 03/28/21 16:15 17:15 17:15 WBC 8.4 RBC 3.87 Hgb 12.0 Hct 36.1 MCV 93 MCH 31 MCHC 33 RDW 13.4 Plt Count 221 Lymph % (Auto) 17.3 [place] % (Auto) 8.9 H Eos % (Auto) 1.2 Baso % (Auto) 0.3 Lymph # (Auto) 1.4 [place] # (Auto) 0.7 Eos # (Auto) 0.1 Baso # (Auto) 0.0 Seg Neutrophils % 72.3 H Seg Neutrophils # 6.0 Sodium Potassium Chloride Carbon Dioxide Anion Gap BUN Creatinine Estimated GFR BUN/Creatinine Ratio Glucose Calcium Total Bilirubin AST ALT Alkaline Phosphatase Total Protein Albumin Albumin/Globulin Ratio Urine Color Straw Urine Turbidity Clear Urine pH 7.0 Ur Specific [place] 1.002 L Urine Protein <15 mg/dl Urine Glucose (UA) Neg Urine Ketones Neg Urine Blood Neg Urine Nitrite Neg Urine Bilirubin Neg Urine Urobilinogen < 2.0 Ur Leukocyte Esterase Lg Urine WBC (Auto) 29.0 H Urine RBC (Auto) 9.0 U Epithel Cells (Auto) 9.0 Urine Yeast (Budding) 3+ Syphilis IgG Antibody Nonreactive HIV 1&2 Antibody Rapid HIV P24 Antigen 03/28/21 03/28/21 17:15 17:15 WBC RBC Hgb Hct MCV MCH MCHC RDW Plt Count Lymph % (Auto) [place] % (Auto) Eos % (Auto) Baso % (Auto) Lymph # (Auto) [place] # (Auto) Eos # (Auto) Baso # (Auto) Seg Neutrophils % Seg Neutrophils # Sodium 137 Potassium 3.6 Chloride 103.4 Carbon Dioxide 21 L Anion Gap 16 BUN 4 L Creatinine 0.3 L Estimated GFR > 60 BUN/Creatinine Ratio 13 Glucose 101 H Calcium 8.6 Total Bilirubin < 0.20 AST 23 ALT 11 Alkaline Phosphatase 128 Total Protein 5.9 L Albumin 3.5 L Albumin/Globulin Ratio 1.5 Urine Color Urine Turbidity Urine pH Ur Specific [place] Urine Protein Urine Glucose (UA) Urine Ketones Urine Blood Urine Nitrite Urine Bilirubin Urine Urobilinogen Ur Leukocyte Esterase Urine WBC (Auto) Urine RBC (Auto) U Epithel Cells (Auto) Urine Yeast (Budding) Syphilis IgG Antibody HIV 1&2 Antibody Rapid Non react HIV P24 Antigen Non react
--- NOTE | 2021-03-29 15:06 | Consultation ---
History of Present Illness Consult date: 03/29/21 Consult reason: other (abnormal ekg) History of present illness: Patient is 35 weeks , that night patient woke up in the middle of been sleep for no reason, felt disoriented and dizzy and maybe some shortness of breath. This lasted for a while and got better. Wednesday she went to see her nanoscience technician who performed an EKG and EKG was found to be abnormal showing sinus rhythm and possible anteroseptal infarct ,age undetermined. Because of this patient was admitted for observation. Patient denied any chest pain, however she says she feels some pounding in the chest once in a while. Had transient shortness of breath but presently she is not having any shortness of breath or leg swelling. Patient apparently was evaluated by Dr. John already in our office few months ago and had a Holter monitor and was noted to have PVCs and she was told that benign. No particular treatment was given. Also she tells me she had an echocardiogram performed in the office and apparently it was unremarkable. This is her third and she did not have any problems during her last 2 pregnancies. No history of hypertension or diabetes or pulmonary problems. No history of DVT or PE. Patient was diagnosed to have pelvic congestion syndrome and being followed by Dr. Stanford and takes her Lovenox 40mg a day. Past History Past Medical History: other (History of pelvic congestion syndrome and on Lovenox, being followed by Dr. Stanford.). denies: diabetes, hypertension, hyperlipidemia, hypothyroidism Medications and Allergies Allergies Allergy/AdvReac Type Severity Reaction Status Date / Time No Known Allergies Allergy Verified 10/27/19 12:53 Active Meds: Active Medications Acetaminophen (Acetaminophen 325 Mg Tab) 650 mg PO Q4H PRN PRN Reason: Pain MILD(1-3)/Fever >100.5/CALLE Docusate Sodium (Docusate Sodium 100 Mg Cap) 100 mg PO Q12H PRN PRN Reason: Constipation Enoxaparin Sodium (Enoxaparin 40 Mg/0.4 Ml Inj) 40 mg SUB-Q QDAY@2200 [facility]; Protocol Last Admin: 03/28/21 21:24 Dose: 40 mg Documented by: Multivitamins/Iron/Calcium ( Xun88-Pd Fumarate-Folic Acid Vit Tab) 1 each PO QDAY [facility] Last Admin: 03/29/21 08:52 Dose: 1 each Documented by: Review of Systems Constitutional: other (Patient is 35 weeks .) Ears, nose, mouth and throat: no ear discharge Breasts: deferred Cardiovascular: palpitations, lightheadedness, no chest pain, no orthopnea, no e rowdy, no syncope, no dyspnea on exertion, no high blood pressure, no leg edema Rectal: no bleeding Musculoskeletal: no arm numbness/tingling Integumentary: no rash Neurological: no migraines Psychiatric: no memory loss Endocrine: no cold intolerance Allergic/Immunologic: no urticaria Physical Examination Vital Signs Pulse BP 68 105/65 03/28/21 16:26 03/28/21 16:26 General appearance: no acute distress, other (.) HEENT: Positive: PERRL Neck: Positive: neck supple Cardiac: Positive: Reg Rate and Rhythm. Negative: Audible Murmur Lungs: Positive: clear to auscultation Neuro: Positive: Grossly Intact Abdomen: Positive: Distended Female genitourinary: deferred Skin: Negative: Rash Extremities: Absent: edema Results 03/28/21 17:15 03/28/21 17:15 Cardiac Enzymes 03/28/21 Range/Units 17:15 AST 23 (5-40) units/L CBC 03/28/21 Range/Units 17:15 WBC 8.4 (4.5-11.0) K/mm3 RBC 3.87 (3.65-5.03) M/mm3 Hgb 12.0 (10.1-14.3) gm/dl Hct 36.1 (30.3-42.9) % Plt Count 221 (140-440) K/mm3 Lymph # (Auto) 1.4 (1.2-5.4) K/mm3 [place] # (Auto) 0.7 (0.0-0.8) K/mm3 Eos # (Auto) 0.1 (0.0-0.4) K/mm3 Baso # (Auto) 0.0 (0.0-0.1) K/mm3 Comprehensive Metabolic Panel 03/28/21 Range/Units 17:15 Sodium 137 (137-145) mmol/L Potassium 3.6 (3.6-5.0) mmol/L Chloride 103.4 (98-107) mmol/L Carbon Dioxide 21 L (22-30) mmol/L BUN 4 L (7-17) mg/dL Creatinine 0.3 L (0.6-1.2) mg/dL Glucose 101 H (65-100) mg/dL Calcium 8.6 (8.4-10.2) mg/dL AST 23 (5-40) units/L ALT 11 (7-56) units/L Alkaline Phosphatase 128 (35-129) units/L Total Protein 5.9 L (6.3-8.2) g/dL Albumin 3.5 L (3.9-5) g/dL EKG interpretations - EKG Sinus rhythms and dysrhythmias: sinus rhythm (Possible anteroseptal infarct age undetermined. Possible left atrial enlargement, right ventricular conduction delay.) Assessment and Plan 36-year-old female, third , 30 x 35 weeks , had an episode of transient dizziness and disorientation when she woke up in the middle of the night. Lasted for a while and she has some pounding in the heart. Patient was known to have PVCs in the past which were felt to be benign. Had a Holter monitor and echocardiogram done according to her in her office, was seen by Dr. Benitez already. Presently her clinical examination is unremarkable. No significant murmurs noted. The heart appears to be regular. EKG done yesterday showed sinus rhythm with loss of R wave in V2 with questionable findings of anteroseptal infarct age undetermined. No significant arrhythmia noted on the EKG. At this time patient appears to be stable. No evidence of due to overload. Lungs are clear and no leg edema noted. Clinical examination appears to be unremarkable. Patient appears to be stable. Patient may have PVCs which may be causing her pounding in the heart. Considering as there are no symptoms to suggest of acute cardiac problems, and if repeat EKG is unchanged, we can di scharge her home and get a 24-hour Holter monitor and follow-up by Dr. John. Patient is agreeable with the plan. - Patient Problems (1) PVC (premature ventricular contraction) Current Visit: Yes Status: Acute (2) 35 weeks gestation of Current Visit: Yes Status: Acute (3) Abnormal EKG Current Visit: Yes Status: Acute
[2021-03-29 16:48] VITALS: BP 98/68
--- NOTE | 2021-03-29 16:49 | Event Note ---
Date: 03/29/21 Agree with MW note and exam Pt see by cardiology and cleared for d/c home without out pt follow up. Will d/c home at this time.
--- NOTE | 2021-03-29 18:51 | Event Note ---
Date: 03/29/[address] Salas who feels pt is stable from cards standpoint and can be d/c home at his time with follow up Wednesday for holter monitor. Will d/c pt home at this time.
--- NOTE | 2021-03-29 19:38 | Event Note ---
Date: 03/29/21 [facility] Cardiac status is currently stable. Pt may be discharged from a Cardiology standpoint. Plan for 48-hr outpatient event monitor. Follow-up with Dr. John in 1-2 weeks ([phone]). MALIK ALVARADO NP / BRYN RAMSEY MD
--- NOTE | 2021-03-29 20:03 | Discharge Summary ---
Providers - Providers Date of Admission: 03/28/2021 Date of discharge: 03/29/21 (pt desires discharge home) Attending physician: CESAR GARCIA 03/28/21 19:02 Consult to Physician [CONS] Routine Comment: Consulting Provider: [facility] Physician Instructions: Reason For Exam: Abnormal EKG; SOB and dizziness Primary care physician: MICHAEL FRIED Hospitalization Reason for admission: IUP - , observation Episiotomy: none Laceration: none Other procedures: none complications: none Discharge diagnosis: other ( IUP) Condition at discharge: Good Disposition: HOME / SELF CARE / HOMELESS - Discharge Diagnoses (1) 35 weeks gestation of Status: Acute (2) Abnormal EKG Status: Acute (3) Dizziness Status: Acute (4) Female pelvic congestion syndrome Status: Acute Plan - Provider Discharge Summary Activity: routine, no heavy lifting 4 weeks, no strenuous exercise Diet: routine Instructions: routine Additional instructions: [] Smoking cessation referral if applicable(refer to patient education folder for contact #) [] Refer to [facility] Booklet Call your doctor immediately for: * Fever > 100.5 * Heavy vaginal bleeding ( >1 pad per hour) * Severe persistent headache * Shortness of breath * Reddened, hot, painful area to leg or breast * decreased movement * contractions more than 6 per hour * vaginal leakage of fluid suspicious of membranes rupture * Chest pain * dizziness * return or worsening of symptoms Please call [phone] to schedule a Diabetes Physician follow up within 1 week. Please call [phone] and schedule an OB follow up within 1 week. Please also call Dr. Stanford and schedule a visit to follow up on your recent hospitalization in the next week. Thank you! - Follow up plan Follow up: MICHAEL FRIED MD [Primary Care Provider] - 7 Days Forms: [facility] Discharge Summary
--- NOTE | 2021-04-01 14:09 | Electrocardiograph Report ---
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
--- NOTE | 2021-04-01 14:17 | Electrocardiograph Report ---
[facility] Test Date: 2021-03-29 Test Time: 17:11:18 Pat Name: BRAULIO MAYA Department: Room: Gender: F Boiler Room Operator: JEFFERSON BYRNES RRT : 1985 Requested By: BRYN RAMSEY Order Number: [id number] Reading MD: Rosalind Castro Measurements Intervals [place] Rate: 71 P: 81 IN: 124 QRS: 54 QRSD: 83 T: 38 QT: 375 QTc: 408 Interpretive Statements Sinus rhythm Probable left atrial enlargement Anteroseptal infarct, age indeterminate Compared to ECG 03/28/2021 18:23:40 No significant changes Electronically Signed On 04-01-2021 14:17:18 EST by Rosalind Castro
== END 2021-03-29 20:05 | disposition home or self-care (01) ==
LOC: TRG 15:41 → APU 15:43 → LD 19:01 → TRG 03-29 20:05
PROVIDERS: ATTEND Obstetrics & Gynecology
DX: Z34.83 Encounter for supervision of other normal pregnancy, third trimester (principal); R42 Dizziness and giddiness; Z3A.35 35 weeks gestation of pregnancy
CPT/HCPCS: 36415; 71045; 80053; 81001; 85025; 86592; 87086; 87116; 87591; 87806; 93005; J1650

== ENCOUNTER 2021-04-10 05:35 | Inpatient (IN) | payer BC ==
--- NOTE | 2021-04-09 13:30 | History and Physical Report ---
History of Present Illness Date of examination: 04/04/21 Chief complaint: Primary delivery, previous myomectomy that requires delivery History of present illness: Past History : 3 Term Births: 1 Premature Births: 0 Living Children: 1 Para: 1 Mult. Births: 0 Prev : 0 Prev. attempt? 0 Aborta: 1 Elect. Ab: 0 Spont. 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 Infection History Hx of STD: none HIV Risk Eval: no Hepatitis B Risk Eval: low risk Personal hx. of genital herpes: no Partner hx. of genital herpes: no Rash, Viral, or Febrile illness since last LMP? no Varicella/Chicken Pox Status: Previous Disease TB Risk: no Genetic History Congenital Heart Defect: Mom: no Dad: no Thanh Disease: Mom: no Dad: no Thalassemia Mom: no Dad: no Neural Tube Defect Mom: no Dad: no Down's Syndrome Mom: no Dad: no Carl-Sachs Mom: no Dad: no Sickle Cell Disease/Trait Mom: no Dad: no Hemophilia Mom: no Dad: no Muscular Dystrophy Mom: no Dad: no Cystic Fibrosis Mom: no Dad: no Raya Chorea Mom: no Dad: no Mental Retardation Mom: no Dad: no Fragile X Mom: no Dad: no Other Genetic/Chromosomal Disorder Mom: no Dad: no Child w/other defect Mom: no Dad: no Enviromental Exposures Xray Exposure: yes Medication, drug, or alcohol use since LMP: no Chemical/Other Exposure: yes Exposure to Cat Liter: no Hx of Parvovirus (Fifth Disease): no 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 @ [employer] 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 Medications (reviewed today): PNV () Current Allergies: * VACCINE REACTIONS: FLU AND GARDISIL (Critical) Past History - Obstetrical History Expected Date of Delivery: 05/01/21 Actual Gestation: 36 Week(s) 6 Day(s) : 3 Medications and Allergies Allergies Allergy/AdvReac Type Severity Reaction Status Date / Time No Known Allergies Allergy Verified 10/27/19 12:53 Active Meds: Active Medications Carboprost Tromethamine (Carboprost Tromethamine 250 Mcg/1 Ml Inj) 250 mcg IM ONCE PRN PRN Reason: bleeding Citric Acid/Sodium Citrate (Bicitra Oral Liqd 30ml) 30 ml PO ONCE ONE Stop: 04/10/21 06:31 Diphenoxylate HCl/Atropine (Diphenoxylate/Atropine Tab) 1 tab PO Q6H PRN PRN Reason: Diarrhea Famotidine (Famotidine 20 Mg/2 Ml Inj) 20 mg IV ONCE ONE Stop: 04/10/21 05:31 Lactated Ringer's (Lactated Ringers) 1,000 mls @ 2,250 mls/hr IV PREOP CHASE Stop: 04/11/21 05:57 Oxytocin/Sodium Chloride (Pitocin/Ns 30 Unit/500ml) 30 units in 500 mls @ 0 mls/hr IV TITR CHASE; Protocol Cefazolin Sodium (Ancef/Sterile Water 2 Gm/20 Ml) 2 gm in 20 mls @ 80 mls/hr IV PREOP NR; Protocol Lidocaine/Prilocaine (Emla Cream 5 Gm) 1 applic TP ONCE PRN PRN Reason: for chicas catheter insertion Metoclopramide HCl (Metoclopramide 10 Mg/2 Ml Inj) 10 mg IV ONCE ONE Stop: 04/10/21 05:31 Misoprostol (Misoprostol 200 Mcg Tab) 800 mcg UT ONCE PRN PRN Reason: Bleeding Results All other labs normal. Assessment and Plan Admitted now for delivery per [facility] recommendations. She requires delviery d/t previous myomectomy. - Patient Problems (1) 37 weeks gestation of Status: Acute (2) Maternal care due to uterine scar from previous surgery Status: Chronic Qualifiers: Previous surgery type: uterine scar from other previous surgery Qualified Code(s): O34.29 - Maternal care due to uterine scar from other previous surgery Plan to address problem: Risk associated with delivery were discussed, including but not limited to, bleeding that may require blood transfusion, infection that may be life threatening, injury to adjacent organs specifically bowel or bladder that may require further surgeries, or major vascular injury. She was also informed that when she has had a delivery she may require repeat deliveries for all subsequent pregnancies. Questions were encouraged and answered, consents were reviewed and signed. Patient voiced understanding and desires to proceed with delivery. She declines sterilization at this time. (3) Advanced maternal age during Status: Chronic (4) Female pelvic congestion syndrome Status: Chronic (5) Fibroid uterus Status: Chronic Qualifiers: Uterine leiomyoma location: intramural and submucous Qualified Code(s): D25.1 - Intramural leiomyoma of uterus; D25.0 - Submucous leiomyoma of uterus
[~2021-04-10 05:35] MED LIST: CARBOPROST TROMETHAMINE 250 MCG/1 ML INJ IM PRN; DIPHENOXYLATE/ATROPINE TAB PO PRN; EMLA CREAM 5 GM TP PRN; FAMOTIDINE 20 MG/2 ML INJ IV SCH; LACTATED RINGERS 1,000 ML IV SCH; METOCLOPRAMIDE 10 MG/2 ML INJ IV SCH; OXYTOCIN DRIP 30 UNITS/500 ML BAG IV SCH; ceFAZolin/Water 2 GM/20 ML 2 GM/20 ML SYRINGE IV NR; miSOPROStol 200 MCG TAB PR PRN
[2021-04-10] MEDS ORDERED: BICITRA ORAL LIQD 30ML PO SCH (06:30)
[2021-04-10 07:10] LABS: Hemoglobin 12.9 gm/dl (10.1-14.3); Mean Corpuscular HGB Conc 33 % (30-34); Mean Corpuscular Volume 91 fl (79-97); Platelet Count 206 K/mm3 (140-440); Red Blood Count 4.27 M/mm3 (3.65-5.03); Red Cell Distribution Width 13.4 % (13.2-15.2)
--- NOTE | 2021-04-10 08:31 | Anesthesia Consultation ---
Anesthesia Consult and Med Hx Date of service: 04/10/21 - Airway Anesthetic Teeth Evaluation: Good ROM Head & Neck: Adequate Mental/Hyoid Distance: Adequate Mallampati Class: Class II Intubation Access Assessment: Good - Pulmonary Exam CTA: Yes - Cardiac Exam Cardiac Exam: RRR - Pre-Operative Health Status ASA Pre-Surgery Classification: ASA3 Proposed Anesthetic Plan: Epidural - Pulmonary Hx Smoking: No Hx Asthma: No Hx Respiratory Symptoms: Yes SOB: Yes (with , especially when lying down) COPD: No Home Oxygen Therapy: No Hx Pneumonia: No Hx Sleep Apnea: No - Cardiovascular System Hx Hypertension: No Hx Coronary Artery Disease: No Hx Heart Attack/AMI: Yes (2wks ago, F/U with Cardiology- halter moniter negative) Hx Angina: No Hx Percutaneous Transluminal Coronary Angioplasty (PTCA): No Hx Cardia Arrhythmia: Yes (frquent PVC'S with this ) Hx Pacemaker: No Hx Internal Defibrillator: No Hx Valvular Heart Disease: No Hx Heart Murmur: No Hx Peripheral Vascular Disease: No - Central Nervous System Hx Neuromuscular Disorder: No Hx Seizures: No CVA: No Hx Back Pain: Yes Hx Psychiatric Problems: No - Gastrointestinal Hx Ulcer: No Hx Gastroesophageal Reflux Disease: Yes - Endocrine Hx Renal Disease: No Hx End Stage Renal Disease: No Hx Cirrhosis: No Hx Liver Disease: No Hx Insulin Dependent Diabetes: No Hx Non-Insulin Dependent Diabetes: No Hx Thyroid Disease: No Hx Hypothyroidism: No Hx Hyperthyroidism: No - Hematic Hx Anemia: No Hx Sickle Cell Disease: No - Other Systems Hx Alcohol Use: Yes (not during ) Hx Substance Use: No Hx Cancer: No Hx Obesity: No - Additional Comments Anesthesia Medical History Comments: Left Illiac Artery Stenosis- Heparin stopped 24 hrs ago. Myomectomy 2018 - PONV. Pelvic Congestion Syndrome Reflox Left ovary
[2021-04-10] MEDS ORDERED: ONDANSETRON 4 MG/2 ML INJ ONE (09:28)
[2021-04-10] MEDS ORDERED: PHENYLEPHRINE 10 MG/1 ML INJ SDV ONE ×2 (09:28→10:54)
[2021-04-10] MEDS ORDERED: METHYLERGONOVINE MALEATE 0.2 MG/ML VIAL IM ONE (09:29)
[2021-04-10] MEDS ORDERED: dexAMETHasone 20 MG/5 ML VIAL ONE (09:34)
[2021-04-10] MEDS ORDERED: BUPIVACAINE/PF (0.25%) 2.5 MG/ML 30 ML VIAL INFILTRATI ONE (09:34)
--- NOTE | 2021-04-10 10:27 | Anesthesia Day of Surgery ---
Anesthesia Day of Surgery - Day of Surgery Patient Examined: Yes Patient H&P Reviewed: Yes Patient is NPO: Yes Beta Blockers: No Cardiac Clearance: No Pulmonary Clearance: No Salvador's Test: Negative
--- NOTE | 2021-04-10 10:39 | Progress Note ---
Spinal Anesthesia Block - Spinal Anesthesia Block Start Time: 08:55 Stop Time: 09:03 Performed by:: RAMSEY WONG Procedure: Patient IDed, H&P reviewed, all questions and concerns were answered, and consent was signed. Timeout was performed at bedside. Patient in sitting position. Sterile prep and drape was performed. [3] ml of 1% lidocaine skin wheal at L[3]- L [4]. Needle introducer advanced. 25 gauge spinal needle advanced. Clear, free flowing CSF. negative blood, negative paresthesia. Spinal dose given. All needles removed. Patient tolerated procedure.
--- NOTE | 2021-04-10 10:40 | Progress Note ---
Regional Anesthesia Block - Regional Anesthesia Block Start Time: 10:05 Stop Time: 10:13 Performed By:: RAMSEY WONG Procedure: Patient consented for TAP block for post surgical pain management. Patient identified, monitors placed, and time out performed. TAP identified bilaterally via ultrasound. Skin prepped bilaterally with [chlorhexidine] and [22g stimuplex] needle advanced to the TAP. [Marcaine 0.25% 30ml] injected under ultrasound guidance on the [left] side. [Marcaine 0.25% 30ml] injected under ultrasound guidance on the [right] side. Negative aspiration every 5mL, No change in heart rate or rhythm. Patient tolerated the procedure well. No apparent complications seen.
[2021-04-10] MEDS ORDERED: LACTATED RINGERS 1,000 ML ONE (10:54)
[2021-04-10] MEDS ORDERED: SODIUM CHLORIDE 0.9% 1000 ML 1,000 ML ONE (10:55)
[2021-04-10] MEDS ORDERED: D5W/LACTATED RINGERS 1,000 ML IV SCH (12:05)
[2021-04-10] MEDS ORDERED: NALOXONE 0.4 MG/1 ML INJ IV PRN (12:05)
[2021-04-10] MEDS ORDERED: OXYTOCIN DRIP 30 UNITS/500 ML BAG IV SCH (12:05)
[2021-04-10] MEDS ORDERED: MAGNESIUM HYDROXIDE (MOM) ORAL LIQD UDC PO PRN (12:05)
[2021-04-10] MEDS ORDERED: MORPHINE 2 MG/1 ML INJ IV PRN (12:05)
[2021-04-10] MEDS ORDERED: ONDANSETRON 4 MG/2 ML INJ IV PRN (12:05)
[2021-04-10] MEDS ORDERED: WITCH HAZEL/ GLYCERIN PAD TP PRN (12:05)
[2021-04-10] MEDS ORDERED: PROMETHAZINE 25 MG RECT SUPP PR PRN (12:05)
[2021-04-10] MEDS ORDERED: SENNOSIDES 8.6 MG TAB PO PRN (12:05)
[2021-04-10] MEDS: ACETAMINOPHEN 325 MG TAB PO SCH ×2 (15:13→22:00)
[2021-04-10] MEDS: ceFAZolin/NS 1 GM/50 ML 1 GM/50 ML BAG IV SCH (15:17)
[2021-04-10] MEDS: LANOLIN/ZINC/DIMETHICONE (LANSINOH) 7 GM TP PRN (15:33)
[2021-04-10] MEDS: MORPHINE 4 MG/1 ML INJ IV PRN (17:23)
--- NOTE | 2021-04-10 20:06 | Operative Report ---
Operative Report Operative Report: Date of operation: 04/10/2021 Pre-operative diagnosis: 1. Intrauterine at 37 weeks gestational age 2. Previous myomectomy requiring delivery 3. Pelvic congestion syndrome 4. BMI 27.1 kg/m2 5. Advanced maternal age 6. Uterine fibroid Post-operative diagnosis: 1. Intrauterine at 37 weeks gestational age 2. Previous myomectomy requiring c esarean delivery 3. Pelvic congestion syndrome 4. BMI 27.1 kg/m2 5. Advanced maternal age 6. Uterine fibroid 7. Left retroperitoneal mass in the iliac region. 8. Malpresentation: Transverse back up head to maternal left Procedure name(s): Primary low transverse uterine incision Surgeon: Alyssa Young MD Staff Submarine Warfare Officer: HERIBERTO Falk Anesthesia: Spinal QBL: 771 mL Urine output: 300 mL of clear urine out at the end of the procedure Fluids: 1700 mL Findings: Liveborn female infant weight 5 Lbs. 8 oz. Apgars of 8 and 9 at one and 5 minutes. Left lower anterior uterine fibroid. Grossly normal tubes and ovaries. Approximately 6 cm mobile mass palpated in the left retroperitoneal iliac region. Procedure: Patient was taking to the operating room. Spinal anesthesia was placed. Patient was then prepped and draped in the usual sterile fashion Timeout was performed. Once an appropriate level of anesthesia was noted, a Pfannenstiel incision was made and extended the fascia which was incised and extended lateral direction. The overlying fascia was sharply dissected away from the underlying rectus muscles in the superior inferior direction. The midline was entered bluntly. Bladder blade was placed. Vesicouterine fold was incised with blunt dissection bladder flap was created. A transverse incision was made in the lower uterine segment and extended superolateral direction with finger fractionation. Clear fluid was noted. was delivered from the double footling breech position, with spontaneous cry and excellent tone. Mouth and nose bulb suctioned. Cord was doubly clamped and cut infant was given to the resuscitation team present. Placenta was delivered. The uterus was exteriorized and cleaned of any further placental tissue and products of conception. Uterine incision was approximated using 0 Vicryl in a running interlocking stitch followed by further suture of 0 Vicryl in imbricating fashion. When hemostasis was noted the uterus was allowed back in the pelvic cavity. Pelvis was irrigated with warm normal saline. Once hemostasis was noted the rectus muscles were approximated using 0 Vicryl interrupted simple stitches 3. Once hemostasis was noted the fascia was approximated using 0 Vicryl simple running stitch. The incision was irrigated with warm saline, once hemostasis as noted, the subcuticular adipose tissue was reapproximated using 3- 0 Vicryl in a simple running fashion. Skin was approximated using 4-0 Monocryl on a PS2 needle in a subcuticular manner. Counts were correct x3. Patient tolerated the procedure well, she was taken to recovery room in stable condition.
[2021-04-10] MEDS: ENOXAPARIN 40 MG/0.4 ML INJ SUB-Q SCH (22:00)
[2021-04-11] MEDS: ceFAZolin/NS 1 GM/50 ML 1 GM/50 ML BAG IV SCH (01:10)
[2021-04-11] MEDS: MORPHINE 4 MG/1 ML INJ IV PRN (01:10)
[2021-04-11 04:55] LABS: Hematocrit 32.6 % (30.3-42.9); Hemoglobin 10.5 gm/dl (10.1-14.3)
[2021-04-11] MEDS: oxyCODONE 5 MG TAB PO SCH ×3 (08:48→19:05)
[2021-04-11] MEDS: ACETAMINOPHEN 325 MG TAB PO SCH ×3 (09:45→23:00)
[2021-04-11] MEDS ORDERED: TETANUS,DIPH,PERTUSS(ACELL) VACCINE 0.5 ML SYRINGE IM ONE (10:07)
--- NOTE | 2021-04-11 11:57 | Event Note ---
Date: 04/11/21 Went to go round on patient and she was not in the room. Will check back in a few hours.
--- NOTE | 2021-04-11 13:58 | Progress Note ---
Assessment and Plan A: 36 y.o. s/p rpt . POD #1. P: Continue with care. Advance diet as tolerated. Encourage ambulation. Continue with pain medication as ordered. Incentive Spirometry use encouraged. Anticipate discharge home in AM. Subjective - Subjective Date of service: 04/11/21 Principal diagnosis: s/p Primary , POD #1 Interval history: Pt states pain control much better since administration of medication. Encouraged to ask for pain medication when needed. Patient reports: appetite normal, voiding normally, pain well controlled, ambulating normally [place]: doing well, in NICU Objective - Vital Signs Latest vital signs: Vital Signs Temp Pulse Resp BP Pulse Ox Pulse Ox 04/11/21 08:00 98 04/11/21 07:58 98.1 F 68 16 102/64 99 04/11/21 01:40 18 04/11/21 01:10 18 04/11/21 01:08 98.1 F 68 20 109/73 98 04/10/21 23:00 18 04/10/21 22:00 18 04/10/21 21:48 98.4 F 71 20 106/71 94 04/10/21 20:00 98 04/10/21 17:23 16 04/10/21 15:22 97.6 F 66 16 114/74 98 04/10/21 15:13 16 Intake and Output 04/10/21 04/11/21 04/11/21 22:59 06:59 14:59 Intake Total 650 240 320 Output Total 2600 400 900 Balance -1950 160 580 Intake: IV 50 ANCEF/NS 1 GM/50 ML 1 gm 50 In 50 ml @ 100 mls/hr IV Q8H [facility] Rx#:[id number] Oral 600 240 320 Output: Urine 2600 400 900 Indwelling Catheter 2600 Void 400 900 Other: Total, Intake Amount 240 240 120 Total, Output Amount 900 400 900 # Voids Void 1 - Exam Breasts: Present: deferred Cardiovascular: Present: Regular rate Lungs: Present: Normal air movement Abdomen: Present: normal appearance, soft Vulva: both: normal Uterus: Present: normal, firm Extremities: Present: normal Incision: Present: normal, dry, intact, other (No drainage or s/sx of infection noted. )
--- NOTE | 2021-04-11 17:17 | Post Anesthesia Evaluation ---
- Post Anesthesia Evaluation Patient Participated: Yes Airway Patent: Yes Stable Respiratory Function: Yes Nausea/Vomiting: No Temp > 96.8F: Yes Pain Manageable: Yes Adequeate Hydration: Yes Anesthesia Complications: No Block Receding Appropriately: Yes Patient on Ventilator: No
[2021-04-11] MEDS: ENOXAPARIN 40 MG/0.4 ML INJ SUB-Q SCH (22:56)
[2021-04-12] MEDS: oxyCODONE 5 MG TAB PO SCH ×3 (01:44→15:48)
[2021-04-12] MEDS: ACETAMINOPHEN 325 MG TAB PO SCH ×3 (06:30→19:17)
--- NOTE | 2021-04-12 07:17 | Discharge Summary ---
Providers - Providers Date of Admission: 04/10/21 05:35 Date of discharge: 04/12/21 Attending physician: ELMER GILBERT 04/10/21 12:05 Consult to Wood Furniture Assembler [CONS] Routine Reason For Exam: Primary care physician: MICHAEL FRIED Hospitalization Reason for admission: section Delivery: Procedure: primary low transverse Episiotomy: none Laceration: none Incision: normal, dry, intact Other procedures: none complications: none Discharge diagnosis: IUP at term delivered baby: female Hospital course: S: Pt doing well. Voiding, ambulating, and passing flatus okay. O: VPS. Adequate I&O's. Incision open to air, intact, no s/sx of infection and no drainage noted. A: 36 y.o. s/p primary . POD #2. In good condition. P: Discharge home with instructions. To make an incision appointment in the office in 1 week. Condition at discharge: Good Disposition: 01 HOME / SELF CARE / HOMELESS Plan - Discharge Medications Prescriptions: oxyCODONE [roxiCODONE] 5 mg PO Q6HR PRN #20 tablet PRN Reason: Pain - Provider Discharge Summary Activity: routine, no sex for 6 weeks, no heavy lifting 4 weeks, no strenuous exercise Diet: routine Instructions: routine Additional instructions: [] Smoking cessation referral if applicable(refer to patient education folder for contact #) [] Refer to [facility]'s [facility] Booklet Call your doctor immediately for: * Fever > 100.5 * Heavy vaginal bleeding ( >1 pad per hour) * Severe persistent headache * Shortness of breath * Reddened, hot, painful area to leg or breast * Drainage or odor from incision. * Keep incision clean and dry at all times and follow doctor's instructions regarding bathing/showering Congratulations on your baby girl! Thank you for allowing us to take care of you. Please make an incision appointment in the office in 1 week. If you have any questions or concerns after discharge, please do not hesitate to call the office at [phone]. - Follow up plan Follow up: MICHAEL FRIED MD [Primary Care Provider] - 7 Days
[2021-04-12] MEDS: SIMETHICONE 80 MG CHEW TAB PO PRN (15:49)
[2021-04-12] MEDS: oxyCODONE 5 MG TAB PO PRN (22:40)
[2021-04-12] MEDS: ENOXAPARIN 40 MG/0.4 ML INJ SUB-Q SCH (22:43)
[2021-04-13] MEDS: ACETAMINOPHEN 325 MG TAB PO SCH (01:15)
[2021-04-13] MEDS: SIMETHICONE 80 MG CHEW TAB PO PRN (01:16)
[2021-04-13] MEDS: oxyCODONE 5 MG TAB PO PRN ×2 (03:46→10:45)
[2021-04-13] MEDS: ACETAMINOPHEN 500 MG TAB PO SCH ×2 (06:42→14:16)
[2021-04-13 09:41] VITALS: BP 109/64
[2021-04-13] MEDS: LANOLIN/ZINC/DIMETHICONE (LANSINOH) 7 GM TP PRN (14:16)
== END 2021-04-13 18:45 | disposition home or self-care (01) | DRG 788 ==
LOC: APU 05:35 → OB 11:32
PROVIDERS: ADMIT Obstetrics & Gynecology; ATTEND Obstetrics & Gynecology
PROC: 10D00Z1 Extraction of Products of Conception, Low, Open Approach (ICD-10-PCS; principal; 2021-04-10)
PROC: 3E0234Z Introduction of Serum, Toxoid and Vaccine into Muscle, Percutaneous Approach (ICD-10-PCS; 2021-04-11)
DX: O34.211 Maternal care for low transverse scar from previous cesarean delivery (principal); Z37.0 Single live birth; O65.5 Obstructed labor due to abnormality of maternal pelvic organs; Z3A.37 37 weeks gestation of pregnancy; N94.89 Other specified conditions associated with female genital organs and menstrual cycle; O34.13 Maternal care for benign tumor of corpus uteri, third trimester; O99.62 Diseases of the digestive system complicating childbirth; D25.9 Leiomyoma of uterus, unspecified; Z20.822 Contact with and (suspected) exposure to COVID-19; Z21 Asymptomatic human immunodeficiency virus [HIV] infection status
CPT/HCPCS: 36415; 59025; 85014; 85018; 85027; 86592; 86706; 86762; 86850; 86900; 86901; G0378; J3490; J7060; J7121; Q0162; J0690; J1100; J1650; J2270; J2370; J2405; J2590; J2765; J7030; J7120; U0003

== ENCOUNTER 2021-05-27 14:20 | Outpatient (CLI) | payer BC ==
--- NOTE | 2021-05-27 16:43 | Cat Scan Report ---
CT pelvis w con INDICATION: OMNI 300 100 ML SWELLING, MASS, LUMP. TECHNIQUE: All CT scans at this location are performed using CT dose reduction for ALARA by means of automated e xposure control. COMPARISON: None available. FINDINGS: Visualized portions of large and small bowel appear within normal limits without obstruction or ileus . Uterus, adnexal structures, bladder and distal ureters are unremarkable. The appendix is normal. En larged hyperdense left external iliac node is present measuring 2.1 cm image 53 with smaller shotty s ubcentimeter left periaortic and pericaval left external iliac nodes all measuring less than 8 mm in short axis diameter. No intrinsic osseous lesion is seen throughout the pelvis or hips. IMPRESSION: 1. 2.1 cm hyperdense left distal external iliac node again noted which now appears more distal and po ssibly more accessible to CT-guided biopsy 2. No new disease Signer Name: Rajendra Franks MD Signed: 05/27/2021 4:38 PM Workstation Name: [id number]
== END 2021-05-27 14:21 | disposition home or self-care (01) ==
LOC: CT 14:20
PROVIDERS: ATTEND Internal Medicine
DX: R19.09 Other intra-abdominal and pelvic swelling, mass and lump (principal)
CPT/HCPCS: 72193; Q9967

== ENCOUNTER 2021-07-04 06:18 | Day surgery (SDC) | payer BC ==
[2021-06-17 14:56] LABS: Hemoglobin 13.2 gm/dl (10.1-14.3); Mean Corpuscular HGB Conc 36 % (30-34); Mean Corpuscular Volume 88 fl (79-97); Platelet Count 261 K/mm3 (140-440); Red Cell Distribution Width 12.3 % (13.2-15.2)
[2021-06-17 15:15] LABS: Blood Urea Nitrogen 15 mg/dL (7-17); Calcium 9.5 mg/dL (8.4-10.2); Hemolysis Index 19
[2021-06-17 15:28] LABS: BUN/Creatinine Ratio 25
[2021-07-04] MEDS ORDERED: BACTERIOSTATIC SODIUM CHLORIDE 0.9% 30 ML VIAL INFILTRATI ONE (06:41)
[2021-07-04] MEDS ORDERED: LACTATED RINGERS 1,000 ML IV SCH (06:45)
[2021-07-04] MEDS ORDERED: ceFAZolin/STERILE WATER 2 GM/20 ML SYRINGE IV NR (07:00)
--- NOTE | 2021-07-04 07:10 | Anesthesia Day of Surgery ---
Anesthesia Day of Surgery - Day of Surgery Patient Examined: Yes Patient H&P Reviewed: Yes Patient is NPO: Yes
--- NOTE | 2021-07-04 07:10 | Anesthesia Consultation ---
Anesthesia Consult and Med Hx Date of service: 07/04/21 - Airway Anesthetic Teeth Evaluation: Good ROM Head & Neck: Adequate Mental/Hyoid Distance: Adequate Mallampati Class: Class II Intubation Access Assessment: Good - Pulmonary Exam CTA: Yes - Cardiac Exam Cardiac Exam: RRR - Pre-Operative Health Status ASA Pre-Surgery Classification: ASA1 Proposed Anesthetic Plan: General - Pulmonary Hx Smoking: No Hx Asthma: No Hx Respiratory Symptoms: Yes SOB: Yes (with , especially when lying down) COPD: No Hx Pneumonia: No Hx Sleep Apnea: No (ANUP PRE SCREEN NEGATIVE) - Cardiovascular System Hx Hypertension: No Hx Coronary Artery Disease: No Hx Heart Attack/AMI: Yes (2wks ago, F/U with Cardiology- halter moniter negative) Hx Angina: No Hx Percutaneous Transluminal Coronary Angioplasty (PTCA): No Hx Cardia Arrhythmia: Yes (frquent PVC'S with this ) Hx Pacemaker: No Hx Internal Defibrillator: No Hx Valvular Heart Disease: No Hx Heart Murmur: No Hx Peripheral Vascular Disease: No - Central Nervous System Hx Neuromuscular Disorder: No Hx Seizures: No CVA: No Hx Back Pain: Yes Hx Psychiatric Problems: No - Gastrointestinal Hx Ulcer: No Hx Gastroesophageal Reflux Disease: Yes - Endocrine Hx Renal Disease: No Hx End Stage Renal Disease: No Hx Cirrhosis: No Hx Liver Disease: No Hx Insulin Dependent Diabetes: No Hx Non-Insulin Dependent Diabetes: No Hx Thyroid Disease: No Hx Hypothyroidism: No Hx Hyperthyroidism: No - Hematic Hx Anemia: No Hx Sickle Cell Disease: No - Other Systems Hx Alcohol Use: Yes (not during ) Hx Substance Use: No Hx Cancer: No Hx Obesity: No
[2021-07-04] MEDS ORDERED: BUPIVACAINE/PF (0.5%) 5 MG/1 ML 30 ML VIAL INFILTRATI ONE ×2 (07:11→08:50)
[2021-07-04] MEDS ORDERED: LIDOCAINE (1%) 10 MG/1 ML VIAL 20 ML MDV ONE (07:11)
[2021-07-04] MEDS ORDERED: ROCURONIUM 50 MG/5 ML INJ IV ONE (07:15)
[2021-07-04] MEDS ORDERED: KETAMINE/STERILE WATER 50 MG/ML SYRINGE ONE (07:16)
[2021-07-04] MEDS ORDERED: propofoL 200 MG/20 ML VIAL IV ONE (07:16)
[2021-07-04] MEDS ORDERED: ACETAMINOPHEN 325 MG TAB PO ONE (07:32)
[2021-07-04] MEDS ORDERED: MAGNESIUM OXIDE 400 MG TAB PO ONE (07:32)
[2021-07-04] MEDS ORDERED: ONDANSETRON 4 MG/2 ML INJ IV PRN (07:34)
[2021-07-04] MEDS ORDERED: HYDROmorphone 1 MG/1 ML INJ IV PRN ×2 (07:34)
[2021-07-04] MEDS ORDERED: CELECOXIB 200 MG CAP PO NR (08:00)
[2021-07-04] MEDS ORDERED: LIDOCAINE (1%) 10 MG/1 ML VIAL 20 ML MDV INFILTRATI ONE (08:50)
[2021-07-04] MEDS ORDERED: WATER FOR IRRIG STERILE 1,500 ML BOTTLE IR ONE (08:51)
[2021-07-04] MEDS ORDERED: ONDANSETRON 4 MG/2 ML INJ ONE (09:47)
[2021-07-04] MEDS ORDERED: KETOROLAC 30 MG/1 ML INJ ONE (09:47)
[2021-07-04] MEDS ORDERED: LIDOCAINE MPF (2%) 20 MG/1 ML VIAL 5 ML ONE (09:47)
[2021-07-04] MEDS ORDERED: dexAMETHasone 20 MG/5 ML VIAL ONE (09:47)
[2021-07-04] MEDS ORDERED: GLYCOPYRROLATE 0.4 MG/2 ML INJ ONE (09:51)
[2021-07-04] MEDS ORDERED: NEOSTIGMINE 10MG/10 ML INJ MDV ONE (09:51)
--- NOTE | 2021-07-04 10:10 | Short Stay Summary ---
Short Stay Documentation Date of service: 07/04/21 - History H&P: obtained from office - Allergies and Medications Current Medications: Allergies No Known Allergies Allergy (Verified 04/13/21 07:51) Home Medications Medication Instructions Recorded Confirmed Last Taken Type Pnv,Calcium 72/Iron/Folic Acid 1 each PO DAILY 06/11/21 07/04/21 07/02/21 History [Pnv Plus Multivit Tab] Active Medications Cefazolin Sodium (Cefazolin/Sterile Water 2 Gm/20 Ml Syringe) 2 gm IV PREOP NR Stop: 07/04/21 23:59 Celecoxib (Celecoxib 200 Mg Cap) 200 mg PO PREOP NR Stop: 07/04/21 23:59 Last Admin: 07/04/21 07:47 Dose: 200 mg Hydromorphone HCl (Hydromorphone 1 Mg/1 Ml Inj) 0.25 mg IV Q10MIN PRN PRN Reason: Pain, Moderate (4-6) Stop: 07/04/21 23:59 Hydromorphone HCl (Hydromorphone 1 Mg/1 Ml Inj) 0.5 mg IV Q10MIN PRN PRN Reason: Pain , Severe (7-10) Stop: 07/04/21 23:59 Lactated Ringer's (Lactated Ringers) 1,000 mls @ 100 mls/hr IV DIRECT CHASE Last Admin: 07/04/21 06:45 Dose: 100 mls/hr Ondansetron HCl (Ondansetron 4 Mg/2 Ml Inj) 4 mg IV ONCE PRN PRN Reason: Nausea And Vomiting Stop: 07/04/21 23:59 - Brief post op/procedure progress note Date of procedure: 07/04/21 Pre-op diagnosis: enlarged left external iliac lymph node Post-op diagnosis: same Procedure: robotic assisted lysis of adhesions, excisional of enlarged left external iliac lymph node Anesthesia: GETA, local Findings: 2 cm enlarged left external iliac lymph node Surgeon: MARCELINO SALMERON Channeling Machine Runner: ALVINO MURO Estimated blood loss: minimal Pathology: list (left external iliac lymph node) Specimen disposition: to lab Condition: stable - Hospital course Hospital course: Pt observed in PACU and discharged to home in stable condition - Disposition Condition at discharge: Good Disposition: 01 HOME / SELF CARE / HOMELESS Short Stay Discharge Plan Activity: other (no heavy lifting x 1wk) Diet: regular Wound: open to air Additional Instructions: see printed instructions Follow up with: MOLLY WING MD [Primary Care Provider] - 7 Days MARCELINO SALMERON DO [Staff Physician] - 14 Days Prescriptions: HYDROcodone/APAP 5-325 [[place] 5/325] 1 each PO Q6HR PRN #15 tablet PRN Reason: Pain , Severe (7-10)
[2021-07-04] MEDS ORDERED: SCOPOLAMINE TRANSDERMAL PATCH 72 HR TD ONE (11:35)
--- NOTE | 2021-07-04 11:52 | Operative Report ---
Operative Report Operative Report: Date of procedure: 07/04/21 Pre-op diagnosis: enlarged left external iliac lymph node Post-op diagnosis: same Procedure: robotic assisted lysis of adhesions, excisional of enlarged left external iliac lymph node Anesthesia: GETA, local Findings: 2 cm enlarged left external iliac lymph node Surgeon: MARCELINO SALMERON Ingot Stripper: ALVINO MURO Estimated blood loss: minimal Pathology: list (left external iliac lymph node) Specimen disposition: to lab Condition: stable Hospital course: Pt observed in PACU and discharged to home in stable condition Condition at discharge: Good HPI and indication: Patient is a 36-year-old female with a history of an incidentally found enlarged lymph node in the left external iliac chain. Patient had a CT scan abdomen and pelvis a few years ago which showed an abnormally enlarged lymph node. An attempt at a percutaneous biopsy was made however the lymph node had gotten smaller and could not safely be accessed. On repeat CT scan this year the lymph node was still present. It was discussed with radiology and recommended that the patient undergo excisional biopsy to rule out Castleman syndrome. The patient has vague pain in the left lower quadrant. Otherwise asymptomatic. No recent illnesses, fevers or chills. All risks, benefits, alternatives to surgery were discussed with the patient and questions answered. Consent obtained for robotic assisted excision of enlarged left pelvic lymph node, possible open. Procedure in detail: Patient was identified in the preoperative area, taken back to the operating room and placed on the operating room table in supine position. After anesthesia was induced the abdomen was prepped and draped in usual sterile fashion a timeout performed. Local anesthetic was infiltrated into all skin incision sites. A supraumbilical incision was made through which a Veress needle was inserted. The Veress needle position was confirmed using saline drop test and the abdomen insufflated. Initial insufflation pressures were high and therefore the Veress needle was removed. A yuri incision was then made in left upper quadrant at Doll's point. The Veress needle was inserted through this incision and the positioning confirmed using the saline drop test. The abdomen was then insufflated to 15 mmHg without incident. A 5 mm Optiview trocar was placed to the supraumbilical incision. The abdomen was inspected and there was no underlying injury to any of the abdominal structures. The Veress needle was identified and removed. A right upper abdominal and left upper abdominal 8 mm robotic trocars were placed under direct visualization. The 5 mm supraumbilical trocar was removed and replaced with a 12 mm balloon trocar under direct visualization. A Ray-Reagan clip was placed into the abdomen. The patient was placed into Trendelenburg and the robot docked. A monopolar hook was placed in arm #1 and a fenestrated bipolar in arm #2. The surgeon was then transferred to the console. Adhesions from the left ovary and fallopian tube along with the sigmoid colon to the left pelvic wall were dissected very meticulously using a combination of blunt dissection and hook electrocautery. Once these adhesions were dissected area was examined. The iliac vessels and ureter were visible. The outline of the lymph node was identified in the preperitoneal space and this was towards the distal aspect of the external iliac vessels. The peritoneum was incised. The lymph node was identified and dissected using a combination of blunt dissection and hook electrocautery. A small lymphatic vessel was identified and clipped. Once the entire lymph node was dissected it was placed onto the Ray- Reagan. The preperitoneal space was checked for hemostasis which was carefully ensured. The peritoneum was reapproximated with a 3 oh VLoc running stitch. The robot was then undocked and the surgeon scrubbed back in. The remainder of the case was performed laparoscopically. The Ray-Reagan in the sharps were removed from the abdomen under direct visualization. The lymph node was placed into an Endo Catch bag and removed via the 12 mm port. The lymph node measured ap proximately 2 cm. It appeared enlarged but there was no evidence of inflammation. The 12 mm port fascia was then closed using interrupted 0 Vicryl sutures x2 with a Raimunod Drew device. The remainder of the ports were removed and the abdomen desufflated. Skin incisions were once again infiltrated with local anesthetic and the skin incisions were approximated using 4-0 Monocryl subcuticular stitches and skin glue. At the end of the case all sponge, instrument, sharp counts were correct x2. The patient was awoke from anesthesia extubated and taken to PACU in stable condition. The patient's mother was updated
[2021-07-04 17:32] VITALS: BP 102/60
[2021-07-07] MEDS ORDERED: SCOPOLAMINE TRANSDERMAL PATCH 72 HR TD SCH (10:00)
== END 2021-07-04 15:20 | disposition home or self-care (01) ==
LOC: OR 06:18
PROVIDERS: ATTEND Surgery
DX: R59.9 Enlarged lymph nodes, unspecified (principal); N73.6 Female pelvic peritoneal adhesions (postinfective); I42.9 Cardiomyopathy, unspecified; K21.9 Gastro-esophageal reflux disease without esophagitis; R19.04 Left lower quadrant abdominal swelling, mass and lump; Z72.89 Other problems related to lifestyle; Z98.890 Other specified postprocedural states; Z79.899 Other long term (current) drug therapy; Z82.49 Family history of ischemic heart disease and other diseases of the circulatory system
CPT/HCPCS: 36415; 38570; 58660; 80048; 81025; 85027; 88184; 88185; 88305; 88341; 88342; J0690; J1100; J1170; J1815; J1885; J2405; J2704; J2710; J3490; J7120; J7121